=== PATIENT | female | born 1935 | race Caucasian/White ===

== ENCOUNTER 2017-03-29 19:33 | Inpatient (IN) | payer MEDICARE, OTHER ==
[2017-03-29] MEDS ORDERED: SODIUM CHLORIDE 0.9% 1000 ML INFUS.BAG IV PRN (19:54)
--- NOTE | 2017-03-29 19:54 | PDOC ---
History of Present Illness - General History Source: Detention Records <Link Anthony - Last Filed: 03/29/17 21:24> - General History Source: Detention Records Exam Limitations: Dementia - History of Present Illness Initial Comments: 03/29/17 20:28 The patient is a 82 year old female with significant past medical history of dementia, a-fib on eliquis, chf, hypertension, hyperlipidemia, copd/asthma and hypothyroidism who presents to the ED BIBA from [facility] for pneumonia finding on chest x-ray. Patient is poor historian secondary to dementia. As per [place] records, patient had a chest x-ray done earlier today that showed a right lower lobe infiltrate and was sent to the ER. Allergies: Penicillins Social History: No alcohol, tobacco, or drug use reported. Past Surgical History: None reported PCP: Dr. Lizandro Cox <Renetta Galvin - Last Filed: 03/29/17 22:09> - General Stated Complaint: RESPIRATORY Time Seen by Provider: 03/29/17 19:38 Past History - Past Medical History Asthma: Yes Cardiac Disorders: Yes (chronic ischemic heart disease, a-fib) COPD: Yes CHF: Yes Dementia: Yes GI Disorders: Yes (dysphagia) HTN: Yes Hypercholesterolemia: Yes Psychiatric Problems: Yes (anxiety) Thyroid Disease: Yes (hypothyroidism,) - Psycho/Social/Smoking Cessation Hx Anxiety: No Suicidal Ideation: No Smoking History: Unknown if ever smoked Have you smoked in the past 12 months: No Hx Alcohol Use: No Drug/Substance Use Hx: No Substance Use Type: None <Link Anthony - Last Filed: 03/29/17 21:24> <Renetta Galvin - Last Filed: 03/29/17 22:09> - Past Medical History Allergies/Adverse Reactions: Allergies Allergy/AdvReac Type Severity Reaction Status Date / Time Penicillins Allergy Verified 10/08/16 14:29 Home Medications: Ambulatory Orders Albuterol 0.083% Nebulizer Corinne [Ventolin 0.083% Nebulizer Soln -] 1 neb NEB Q4H 02/29/16 Apixaban [Eliquis] 5 mg PO BID 02/29/16 Budesonide [Pulmicort 0.5 mg Nebulizer -] 1 neb NEB BID 02/29/16 Clonazepam 0.5 mg PO Q8H 02/29/16 Furosemide 20 mg PO DAILY 02/29/16 Ipratropium 0.02% Nebulizer [Atrovent 0.02% Nebulizer -] 1 neb NEB ASDIR PRN 03/12 Levothyroxine [Synthroid -] 112 mcg PO DAILY 02/29/16 Losartan Potassium 25 mg PO DAILY 02/29/16 Levofloxacin [Levaquin -] 250 mg PO DAILY #5 tablet 10/10/16 Quetiapine Fumarate [Seroquel -] 12.5 mg PO BID tablet 10/10/16 Review of Systems - Review of Systems Able to Perform ROS?: No Comments:: 03/29/17 20:28 Unable to obtain as patient has dementia <Renetta Galvin - Last Filed: 03/29/17 22:09> *Physical Exam - Vital Signs Last Vital Signs Temp Pulse Resp BP Pulse Ox 101.7 F H 125 H 22 107/45 90 L 03/29/17 19:33 03/29/17 19:33 03/29/17 19:33 03/29/17 19:33 03/29/17 19:33 - Physical Exam Comments: 03/29/17 20:28 GENERAL: Well developed, well nourished. Awake and alert. No acute distress. HEENT: Normocephalic, atraumatic. PERRLA, EOMI. No conjunctival pallor. Sclera are non- icteric. Moist mucous membranes. Oropharynx is clear. NECK: Supple. Full ROM. No JVD. Carotid pulses 2+ and symmetric, without bruits. No thyromegaly. No lymphadenopathy. CARDIOVASCULAR: Regular rate and rhythm. No murmurs, rubs, or gallops. Distal pulses are 2+ and symmetric. PULMONARY: No evidence of respiratory distress. Crackles at right lower base. No retractions. ABDOMINAL: Soft. Non-tender. Non-distended. No rebound or guarding. No organomegaly. Normoactive bowel sounds. MUSCULOSKELETAL Normal range of motion at all joints. No bony deformities or tenderness. No CVA tenderness. EXTREMITIES: No cyanosis. No clubbing. No edema. No calf tenderness. SKIN: Warm and dry. Normal capillary refill. No rashes. No jaundice. NEUROLOGICAL: Pt has dementia. Confused. No gross focal neurological deficits. <Renetta Galvin - Last Filed: 03/29/17 22:09> Heart Score/ECG Review - ECG Impressions Comment:: 03/29/17 21:00 Atrial fibrillation @81bpm Abnormal ECG <Renetta Galvin - Last Filed: 03/29/17 22:09> ED Treatment Course - LABORATORY CBC & Chemistry Diagram: 03/29/17 20:00 03/29/17 20:00 <Link Anthony - Last Filed: 03/29/17 21:24> - LABORATORY CBC & Chemistry Diagram: 03/29/17 20:00 03/29/17 20:00 <Renetta Galvin - Last Filed: 03/29/17 22:09> Medical Decision Making - Medical Decision Making 03/29/17 21:24 Dr. Anthony: The scribe's documentation has been prepared under my direction and personally reviewed by me in its entirery. I confirm that the note above accurately reflects all work, treatment, procedures, and medical decision making performed by me. Patient with right lower lobe pneumonia. Patient will be admitted to [facility] for IV antibiotics. Spoke to Dr. Urbano for orders <Link Anthony - Last Filed: 03/29/17 21:24> - Medical Decision Making 03/29/17 21:[address] Cabrera Urbano (via answering service) at 21:15 Awaiting call back 03/29/17 21:19 Patient's case discussed with Dr. Urbano at 21:19 <Renetta Galvin - Last Filed: 03/29/17 22:09> *DC/Admit/Observation/Transfer - Discharge Dispostion Admit: Yes <Link Anthony - Last Filed: 03/29/17 21:24> - Attestations Scribe Attestion: 03/29/17 20:29 Documentation prepared by Renetta Galvin, acting as medical staffing coordinator for Link Anthony MD/DO <Renetta Galvin - Last Filed: 03/29/17 22:09> Diagnosis at time of Disposition: Sepsis Qualifiers: Sepsis type: sepsis due to unspecified organism Qualified Code(s): A41.9 - Sepsis, unspecified organism Pneumonia Qualifiers: Pneumonia type: due to unspecified organism Laterality: right Lung location: lower lobe of lung Qualified Code(s): J18.1 - Lobar pneumonia, unspecified organism - Referrals Referrals: Lizandro Cox MD [Primary Care Provider] -
[2017-03-29] MEDS ORDERED: ACETAMINOPHEN 1000 MG/100 ML VIAL (NON FORMULARY) IVPB ONE (20:02)
[2017-03-29] MEDS ORDERED: LEVOFLOXACIN 500 MG IVPB 100 ML IVPB ONE ×2 (20:04→20:52)
[2017-03-29] MEDS ORDERED: ACETAMINOPHEN INJECTION 100 ML IVPB ONE (20:34)
[2017-03-29 20:40] LABS: BASOPHIL 0.3 % (0-2.0); EOSINOPHIL 0.4 % (0-4.5); MCH 29.9 pg (25.7-33.7); MCHC 31.5 g/dl (32.0-36.0); MEAN PLT VOLUME 9.3 fl (7.5-11.1); NEUTROPHILS 84.4 % (42.8-82.8); PLATELET COUNT 224 K/MM3 (134-434); WHITE BLOOD COUNT 12.6 K/mm3 (4.0-10.0)
[2017-03-29 20:52] LABS: INR 2.1 (0.82-1.09); PROTHROMBIN TIME (PATIENT) 23.5 SEC (9.98-11.88)
[2017-03-29 20:55] LABS: ACTIVATED PTT 42.5 SECONDS (26.9-34.4)
[2017-03-29 21:14] LABS: ALBUMIN 2.9 g/dl (3.4-5.0); ANION GAP 5 (8-16); BILIRUBIN,TOTAL 0.4 mg/dL (0.2-1.0); CALCIUM 8.2 mg/dL (8.5-10.1); CO2 32 mmol/L (21-32); COCKROFT - GAULT 56.6355; CREATININE 0.9 mg/dL (0.55-1.02); GLUCOSE,RANDOM 128 mg/dL (74-106); SGOT/AST 13 U/L (15-37); SGPT/ALT 18 U/L (12-78); TOT PROT 7.1 g/dl (6.4-8.2)
[2017-03-29 21:17] LABS: ALK PHOS 176 U/L (45-117); TROPONIN I < 0.02 ng/ml (0.00-0.05)
[2017-03-29 21:18] LABS: URINE APPEARANCE SLCLOUDY; URINE BILIRUBIN NEGATIVE (NEGATIVE); URINE COLOR LTYELLOW; URINE GLUCOSE (UA) NEGATIVE (NEGATIVE); URINE KETONE NEGATIVE (NEGATIVE); URINE NITRITE NEGATIVE (NEGATIVE); URINE UROBILINOGEN NEGATIVE E.U./dl (0.2-1.0)
[2017-03-29 21:21] LABS: URINE BLOOD 1+ (NEGATIVE); URINE LEUK ESTERASE 3+ (NEGATIVE); URINE PROTEIN 1+ (NEGATIVE)
[2017-03-29 21:22] LABS: URINE BACTERIA RARE /hpf (NONE SEEN); URINE HYALINE CAST 1 /lpf; URINE MUCUS RARE; URINE RBC 6 /hpf (0-3); URINE WBC 82 /hpf (3-5); YEAST FEW
[2017-03-29 21:38] LABS: VENOUS PH 7.38 (7.32-7.42)
[2017-03-29 21:39] LABS: VENOUS BLOOD GAS HCO3 27.2 meq/L (19-25)
[2017-03-29] MEDS ORDERED: clonazePAM 0.5 MG TABLET ONE (22:20)
[2017-03-29] MEDS: clonazePAM 0.5 MG TABLET PO SCH (22:25)
[2017-03-30] MEDS: ALBUTEROL SO4 0.083% IH SOL 2.5 MG/3 ML VIAL.NEB. NEB SCH ×5 (00:10→23:03)
[2017-03-30] MEDS: IPRATROPIUM BR 0.02% 0.5 MG/2.5 ML VIAL.NEB. NEB SCH ×5 (00:10→23:03)
[2017-03-30 04:25] VITALS: BMI 29.5
[2017-03-30] MEDS: clonazePAM 0.5 MG TABLET PO SCH ×3 (06:21→22:39)
[2017-03-30] MEDS: LEVOTHYROXINE NA 112 MCG TABLET (FP) PO SCH (06:21)
[2017-03-30 07:53] LABS: BASOPHIL 0.3 % (0-2.0); EOSINOPHIL 2.1 % (0-4.5); MCH 31.5 pg (25.7-33.7); MEAN CELL VOLUME 95.6 fl (80-96); MEAN PLT VOLUME 9.3 fl (7.5-11.1); NEUTROPHILS 77.4 % (42.8-82.8); PLATELET COUNT 176 K/MM3 (134-434); RDW 14.9 % (11.6-15.6); WHITE BLOOD COUNT 10.2 K/mm3 (4.0-10.0)
[2017-03-30 08:22] LABS: ALBUMIN 2.5 g/dl (3.4-5.0); ANION GAP 5 (8-16); CALCIUM 7.9 mg/dL (8.5-10.1); CO2 33 mmol/L (21-32); GLUCOSE,RANDOM 79 mg/dL (74-106); MAGNESIUM 2.8 mg/dL (1.8-2.4); SGOT/AST 13 U/L (15-37); SGPT/ALT 14 U/L (12-78)
[2017-03-30 08:28] LABS: ALK PHOS 157 U/L (45-117); BILIRUBIN,TOTAL 0.4 mg/dL (0.2-1.0); CREATININE 0.7 mg/dL (0.55-1.02); TOT PROT 6.2 g/dl (6.4-8.2); TROPONIN I < 0.02 ng/ml (0.00-0.05)
[2017-03-30] MEDS ORDERED: LEVOFLOXACIN 250 MG IVPB 50 ML IVPB SCH (10:00)
[2017-03-30] MEDS ORDERED: FUROSEMIDE 20 MG TABLET (FP) PO SCH (10:00)
[2017-03-30] MEDS: BUDESONIDE 0.5 MG/2 ML INH SUSP VIAL NEB SCH ×2 (10:19→22:02)
[2017-03-30] MEDS: QUEtiapine FUMARATE 25 MG TABLET (FP) PO SCH ×2 (10:22→22:39)
[2017-03-30] MEDS: PANTOPRAZOLE 40 MG TABLET (FP) PO SCH (10:22)
[2017-03-30] MEDS: LOSARTAN POTASSIUM 25 MG TABLET PO SCH (10:23)
[2017-03-30] MEDS: HEPARIN NA (PORCINE) 5,000 UNITS/ML 1ML VIAL SQ SCH ×2 (10:23→22:40)
[2017-03-30] MEDS: APIXABAN 5 MG TABLET PO SCH ×2 (10:23→22:39)
[2017-03-30] MEDS ORDERED: DEXTROSE 5%-0.45% SALINE 1,000 ML IV SCH ×2 (10:45)
--- NOTE | 2017-03-30 10:53 | HP ---
Admitting History and Physical - Admission Chief Complaint: sent for pna History of Present Illness: The patient is a 82 year old female with significant past medical history of dementia, a-fib on eliquis, chf, hypertension, hyperlipidemia, copd/asthma and hypothyroidism who presents to the ED BIBA from [facility] for pneumonia finding on chest x-ray. Patient is poor historian secondary to dementia. As per [place] records, patient had a chest x-ray done earlier today that showed a right lower lobe infiltrate and was sent to the ER. Allergies: Penicillins Social History: No alcohol, tobacco, or drug use reported. Past Surgical History: None reported PCP: Dr. 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 Cardiovascular: Yes: AFIB, HTN, Hyperlipdemia Pulmonary: Yes: COPD ...: No Psych: Yes: Anxiety - Smoking History Smoking history: Unknown if ever smoked Have you smoked in the past 12 months: No Aproximately how many cigarettes per day: 0 - Alcohol/Substance Use Hx Alcohol Use: No Home Medications - Allergies Allergies/Adverse Reactions: Allergies Allergy/AdvReac Type Severity Reaction Status Date / Time Penicillins Allergy Verified 03/29/17 22:09 - Home Medications Home Medications: Ambulatory Orders Albuterol 0.083% Nebulizer Corinne [Ventolin 0.083% Nebulizer Soln -] 1 neb NEB Q4H 02/29/16 Apixaban [Eliquis] 5 mg PO BID 02/29/16 Budesonide [Pulmicort 0.5 mg Nebulizer -] 1 neb NEB BID 02/29/16 Clonazepam 0.5 mg PO Q8H 02/29/16 Furosemide 20 mg PO DAILY 02/29/16 Ipratropium 0.02% Nebulizer [Atrovent 0.02% Nebulizer -] 1 neb NEB ASDIR PRN 03/12 Levothyroxine [Synthroid -] 112 mcg PO DAILY 02/29/16 Losartan Potassium 25 mg PO DAILY 02/29/16 Quetiapine Fumarate [Seroquel -] 12.5 mg PO BID tablet 10/10/16 Acetaminophen [Tylenol -] 650 mg PO BID 03/29/17 Review of Systems Unable to obtain ROS, reason: not able to give history Physical Examination Vital Signs: Vital Signs Temperature 98.2 F 03/30/17 09:00 Pulse Rate 89 03/30/17 10:19 Respiratory Rate 19 03/30/17 09:00 Blood Pressure 145/58 03/30/17 09:00 O2 Sat by Pulse Oximetry (%) 95 03/30/17 10:19 Constitutional: Yes: Thin, Other Cardiovascular: Yes: Regular Rate and Rhythm, S1, S2 Respiratory: Yes: Diminished Gastrointestinal: Yes: Soft Edema: No Neurological: Yes: Confusion (not able to tell me her name) Labs: CBC, BMP 03/30/17 06:00 03/30/17 06:00 Imaging - Results Chest X-ray: Report Reviewed Assessment/Plan confusion sec to infectious process iv abx awaitng cultures wbc trend swallow eval hypernatremia ivf hold lasix renal eval hypothyroid check tsh afib on eliquis cardioology eval copd on bronchodilators GI/DVT ppx
--- NOTE | 2017-03-30 11:50 | CONSULT ---
Addendum entered and electronically signed by Lynnette Asif RES 14:39: PCN allergy, rash and hives many years ago. Original Note: Consultation: REQUESTING PROVIDER: CONSULT REQUEST: We have been asked to medically evaluate this patient for ( specify). HISTORY OF PRESENT ILLNESS: The pt is demented, not following commands, moaning. The history was taken from medical records. 82 year old female with a significant pmhx of chronic ischemic heart disease, CHF, dysphagia, COPD, Asthma, Generalized Anxiety Disorder, Hypertension, Hypothyroidism, HLD, Afib (on Eliquis), dementia who presents brought by ambulance from [facility] she had chest x ray that showed possible pneumonia. She was found to have fever, tachycardia and elevated WBC when arrived to Emergency Room. REVIEW OF SYSTEMS: N/A PHYSICAL EXAMINATION Vital Signs - 24 hr 03/29/17 03/29/17 03/30/17 22:56 23:04 00:15 Temperature 97.9 F 98.1 F Pulse Rate Pulse Rate [ 67 76 Apical] Respiratory 21 20 Rate Blood Pressure Blood Pressure 118/52 111/60 [Right Arm] O2 Sat by Pulse 96 95 Oximetry (%) 03/30/17 03/30/17 03/30/17 02:00 04:21 04:34 Temperature 97.6 F 97.6 F Pulse Rate 58 L 63 Pulse Rate [ Apical] Respiratory 20 20 20 Rate Blood Pressure 118/52 118/52 Blood Pressure [Right Arm] O2 Sat by Pulse 97 Oximetry (%) 03/30/17 03/30/17 03/30/17 05:58 09:00 10:19 Temperature 97.7 F 98.2 F Pulse Rate 64 60 89 Pulse Rate [ Apical] Respiratory 20 19 Rate Blood Pressure 141/75 145/58 Blood Pressure [Right Arm] O2 Sat by Pulse 95 Oximetry (%) GENERAL: Awake and AAO x 0, demented. HEAD: Normal with no signs of trauma. EYES: Pupils equal, round and reactive to light, extraocular movements not able to assess, sclera anicteric, conjunctiva clear. EARS, NOSE, THROAT: Moist mucous membranes, only one tooth. NECK: Supple, no masses. LUNGS: Breath sounds equal, crackles and rhales bilaterally. No wheezes. No accessory muscle use. HEART: Regular rate and rhythm, normal S1 and S2, no murmur rub or gallop. ABDOMEN: Hard, nontender, not distended, normoactive bowel sounds, no guarding, no rebound, no masses. MUSCULOSKELETAL: Normal range of motion at all joints. No bony deformities or tenderness. No CVA tenderness. UPPER EXTREMITIES: warm, well-perfused. No cyanosis. No clubbing. . No peripheral edema. LOWER EXTREMITIES: warm, well-perfused. No calf tenderness. No peripheral edema. NEUROLOGICAL: No facial asymmetry. Gait not observed, not following commands. PSYCHIATRIC: Moaning. SKIN: Warm, dry, normal turgor, no rashes. Laboratory Results - last 24 hr 03/29/17 03/29/17 03/30/17 21:35 22:20 06:00 WBC 10.2 H RBC 3.05 L Hgb 9.6 L Hct 29.1 L MCV 95.6 MCHC 33.0 RDW 14.9 Plt Count 176 D MPV 9.3 Neutrophils % 77.4 Lymphocytes % 10.7 D Monocytes % 9.5 Eosinophils % 2.1 D Basophils % 0.3 VBG pH 7.38 POC VBG pCO2 47.7 POC VBG pO2 71.8 H Mixed VBG HCO3 27.2 H Sodium Potassium Chloride Carbon Dioxide Anion Gap BUN Creatinine Creat Clearance w eGFR Random Glucose Calcium Magnesium Total Bilirubin AST ALT Alkaline Phosphatase Troponin I B-Natriuretic Peptide Total Protein Albumin Blood Type O POSITIVE Antibody Screen Negative 03/30/17 06:00 WBC RBC Hgb Hct MCV MCHC RDW Plt Count MPV Neutrophils % Lymphocytes % Monocytes % Eosinophils % Basophils % VBG pH POC VBG pCO2 POC VBG pO2 Mixed VBG HCO3 Sodium 153 H Potassium 3.5 Chloride 115 H Carbon Dioxide 33 H Anion Gap 5 L BUN 34 H Creatinine 0.7 D Creat Clearance w eGFR > 60 Random Glucose 79 D Calcium 7.9 L Magnesium 2.8 H Total Bilirubin 0.4 AST 13 L ALT 14 D Alkaline Phosphatase 157 H Troponin I < 0.02 B-Natriuretic Peptide 2961.12 H Total Protein 6.2 L Albumin 2.5 L Blood Type Antibody Screen Active Medications Generic Name Dose Route Start Last Admin Trade Name Freq PRN Reason Stop Dose Admin Acetaminophen 650 mg 03/29/17 22:09 Tylenol - PO Q4H PRN FEVER OR PAIN Albuterol Sulfate 1 amp 03/30/17 00:00 03/30/17 11:08 Ventolin 0.083% Nebulizer Soln - NEB 1 amp Q6HPO LARISSA Administration Apixaban 5 mg 03/30/17 10:00 03/30/17 10:23 Eliquis - PO 5 mg BID LARISSA Administration Budesonide 1 amp 03/30/17 10:00 03/30/17 10:19 Pulmicort 0.5 Mg Nebulizer - NEB 1 amp BID LARISSA Administration Clonazepam 0.5 mg 03/29/17 22:15 03/30/17 06:21 Klonopin - PO 0.5 mg TID LARISSA Administration Heparin Sodium (Porcine) 5,000 unit 03/30/17 10:00 03/30/17 10:23 Heparin - SQ 5,000 unit BID LARISSA Administration Levofloxacin 50 mls @ 50 mls/hr 03/30/17 10:00 03/30/17 10:23 Levaquin 250 Mg Premixed Ivpb - IVPB 50 mls/hr DAILY LARISSA Administration Dextrose/Sodium Chloride 1,000 mls @ 42 mls/hr 03/30/17 10:45 03/30/17 11:37 D5-1/2ns - IV 42 mls/hr ASDIR LARISSA Administration Ipratropium [place] 1 amp 03/30/17 12:00 03/30/17 11:08 Atrovent 0.02% Nebulizer - NEB 1 amp QIDR LARISSA Administration Levothyroxine Sodium 112 mcg 03/30/17 07:00 03/30/17 06:21 Synthroid - PO 112 mcg DAILY@0700 LARISSA Administration Losartan Potassium 25 mg 03/30/17 10:00 03/30/17 10:23 Cozaar - PO 25 mg DAILY LARISSA Administration Pantoprazole Sodium 40 mg 03/30/17 10:00 03/30/17 10:22 Protonix - PO 40 mg DAILY LARISSA Administration Quetiapine Fumarate 12.5 mg 03/30/17 10:00 03/30/17 10:22 Seroquel - PO 12.5 mg BID LARISSA Administration Sodium Chloride 1,000 ml 03/29/17 19:54 03/29/17 20:47 Normal Saline - IV 1,000 ml Q20M PRN Administration MAP<65mm Hg OR SBP <90 CXR: possible infiltrate on right side ASSESSMENT/PLAN: 82 year old female with a significant pmhx of chronic ischemic heart disease, CHF, dysphagia, COPD, Asthma, Generalized Anxiety Disorder, Hypertension, Hypothyroidism, HLD, Afib (on Eliquis), dementia who presents brought by ambulance from [facility] she had chest x ray that showed possible pneumonia. She was found to have fever, tachycardia and elevated WBC. Sepsis due to due to pneumonia, UTI -will switch Levaquin to Ceftriaxone 2 g qd -Influenza A&B -sputum culture -urine antigens for PNA A.Fib Dementia Parkinson's HTN HDL [id number] Dispo: We will continue to follow the patient. Thank you for this consultative opportunity. Problem List - Problems (1) Pneumonia Code(s): J18.9 - PNEUMONIA, UNSPECIFIED ORGANISM Qualifiers: Pneumonia type: due to unspecified organism Laterality: right Lung location: lower lobe of lung Qualified Code(s): J18.1 - Lobar pneumonia, unspecified organism (2) A-fib Code(s): I48.91 - UNSPECIFIED ATRIAL FIBRILLATION Qualifiers: Atrial fibrillation type: chronic Qualified Code(s): I48.2 - Chronic atrial fibrillation (3) Dementia Code(s): F03.90 - UNSPECIFIED DEMENTIA WITHOUT BEHAVIORAL DISTURBANCE (4) HTN (hypertension) Code(s): I10 - ESSENTIAL (PRIMARY) HYPERTENSION Visit type - Emergency Visit Emergency Visit: Yes ED Registration Date: 03/29/17 Care time: The patient presented to the Emergency Department on the above date and was hospitalized for further evaluation of their emergent condition. - New Patient This patient is new to me today: Yes Date on this admission: 03/30/17 - Critical Care Critical Care patient: No
--- NOTE | 2017-03-30 13:49 | CONSULT ---
Admitting History and Physical - Primary Care Physician PCP: Jennifer Hwang - Admission History of Present Illness: per emr: "82 year old female with a significant pmhx of chronic ischemic heart disease, CHF, dysphagia, COPD, Asthma, Generalized Anxiety Disorder, Hypertension, Hypothyroidism, HLD, Afib (on Eliquis), dementia who presents brought by ambulance from [facility] she had chest x ray that showed possible pneumonia. She was found to have fever, tachycardia and elevated WBC when arrived to Emergency Room." RLL PNA/UTI. 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 Cardiovascular: Yes: AFIB, HTN, Hyperlipdemia Pulmonary: Yes: COPD ...: No Psych: Yes: Anxiety - Smoking History Smoking history: Unknown if ever smoked Have you smoked in the past 12 months: No Aproximately how many cigarettes per day: 0 - Alcohol/Substance Use Hx Alcohol Use: No History - Admission Reason For Visit: SEPSIS - Diagnostics X-ray: Report Reviewed - General Mental Status: Awake and Alert, Confused Attention: Distractible Ability to Follow Directions: Poor Head/Neck Control: Needs Assist - Hearing Hearing: Impaired Hearing Aide: No With Patient: No Speech Evaluation - Communication Primary Language: BELIZEAN Communication: Yes: Non-Communicable (Constant vocalizations.) Oral Expression Ability: Yes: Severe Impairment, Non-Verbal - Speech Production Able to Make Needs Known: Yes: Severely Impaired Intelligibility: Yes: Severely Impaired - Speech Characteristics Voice Loudness: Normal Voice Pitch: Yes: Normal Voice Phonatory-based Quality: Yes: Normal Speech Pattern: Impaired Speech Clarity: < 25% Nasal Resonance: Normal - Language/Auditory Comprehension Observation: Able to respond to yes/no queries: No, Comprehends Conversational Speech: No - Language/Verbal Expression Able to Respond to Simple Queries: Yes: Severely Impaired Able to Communicate Wants and Needs: Yes: Severely Impaired Functional Communication Status: Yes: Severely Impaired Attention: Yes: Distractible, Moderate Impairment - 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 Memory: Yes: Severely Impaired Short Term Memory: Yes: Severely Impaired - Swallow Evaluation/Bedside Assessment Current Nutritional Intake: Dysphagia Minced, Thin Liquids Facial Symmetry at Rest: Symmetrical Laryngeal Elevation: Impaired Laryngeal Movement: Labored,delay initiation Rate of Intake: Slow/Holding Labial Seal: Impaired Bilaterally Chewing: Impaired Oral Prep Time: Increased A-P Transit: Impaired Pocketing: Present Bilaterally Timing of Swallow: Delayed Coughing/Throat Clear: No Change in Voice: No Recommendations - Speech Evaluation, Impression/Plan Impression: r/o silent aspiration. RLL pna.Very delayed swallow. Oral/ pharyngeal dyscoordination. Constant vocalizations, leaving airway open while eating/drinking. - Dysphagia Impressions/Plan Swallowing Skills: Impaired Dysphagia Impressions: Moderate Impairment, Ongoing Evaluation *Silent aspiration: cannot be R/O at bedside Recommendations: MBS w Esophagus - Recommendations Diet Consistency: Dysphagia Pureed Medication Administration: Crushed with applesauce Liquids: [place] Thick Supplement: Other (Ensure compact)
--- NOTE | 2017-03-30 14:01 | CON.CARD ---
Consult Consult Specialty:: Cardiology Referred by:: Dr Urbano Reason for Consultation:: atrial fibrillation - History of Present Illness Chief Complaint: admitted for pneumonia on xray History of Present Illness: 82 year old female with significant past medical history of dementia, chronic atrial fibrillation on eliquis, CVA, chf, hypertension, hyperlipidemia, copd/ asthma and hypothyroidism who was admitted from [facility] for pneumonia finding on chest x-ray. She is unable to give a history and appears comfortable lying flat. 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 Cardio/Vascular: Yes: AFIB, HTN, Hyperlipdemia Pulmonary: Yes: COPD ...: No Psych: Yes: Anxiety - Alcohol/Substance Use Hx Alcohol Use: No - Smoking History Smoking history: Unknown if ever smoked Have you smoked in the past 12 months: No Aproximately how many cigarettes per day: 0 - Social History Usual Living Arrangement: Shelter Home Medications - Allergies Allergies/Adverse Reactions: Allergies Allergy/AdvReac Type Severity Reaction Status Date / Time Penicillins Allergy Verified 03/29/17 22:09 - Home Medications Home Medications: Ambulatory Orders Albuterol 0.083% Nebulizer Corinne [Ventolin 0.083% Nebulizer Soln -] 1 neb NEB Q4H 02/29/16 Apixaban [Eliquis] 5 mg PO BID 02/29/16 Budesonide [Pulmicort 0.5 mg Nebulizer -] 1 neb NEB BID 02/29/16 Clonazepam 0.5 mg PO Q8H 02/29/16 Furosemide 20 mg PO DAILY 02/29/16 Ipratropium 0.02% Nebulizer [Atrovent 0.02% Nebulizer -] 1 neb NEB ASDIR PRN 03/12 Levothyroxine [Synthroid -] 112 mcg PO DAILY 02/29/16 Losartan Potassium 25 mg PO DAILY 02/29/16 Quetiapine Fumarate [Seroquel -] 12.5 mg PO BID tablet 10/10/16 Acetaminophen [Tylenol -] 650 mg PO BID 03/29/17 Family Disease History - Family Disease History Family History: Unable to Obtain Review of Systems Unable to obtain ROS, reason: due to dementia Vital Signs: Vital Signs Temperature 98.2 F 03/30/17 09:00 Pulse Rate 89 03/30/17 10:19 Respiratory Rate 19 03/30/17 09:00 Blood Pressure 145/58 03/30/17 09:00 O2 Sat by Pulse Oximetry (%) 95 03/30/17 10:19 Constitutional: Yes: No Distress, Calm Eyes: Yes: Conjunctiva Clear HENT: Yes: Atraumatic, Normocephalic Neck: Yes: Supple, Trachea Midline Respiratory: Yes: Rhonchi (rt > lt) Gastrointestinal: Yes: Normal Bowel Sounds, Soft Cardiovascular: Yes: Pulse Irregular JVD: No Carotid Bruit: No PMI: Non-Displaced Heart Sounds: Yes: S1, S2 Murmur: Yes: Systolic Murmur, Grade 2 (mehdi rusb.) Edema: No Peripheral Pulses WNL: Yes - Other Data Labs, Other Data: CBC, BMP 03/30/17 06:00 03/30/17 06:00 INR, PTT INR 2.10 (0.82-1.09) H D 03/29/17 20:00 Troponin, BNP 03/30/17 06:00 Troponin I < 0.02 B-Natriuretic Peptide 2961.12 H Troponin, BNP 03/30/17 06:00 Troponin I < 0.02 B-Natriuretic Peptide 2961.12 H Imaging - Results Chest X-ray: Report Reviewed EKG: Pending Problem List - Problems (1) A-fib Assessment/Plan: Continue Eliquis for stroke prevention. She is rate controlled at present without medications. No need for further cardiac testing given her disability at this point. She is not a candidate for further therapy. cardiac status is stable. Will follow as needed. Code(s): I48.91 - UNSPECIFIED ATRIAL FIBRILLATION Qualifiers: Atrial fibrillation type: chronic Qualified Code(s): I48.2 - Chronic atrial fibrillation
--- NOTE | 2017-03-30 14:28 | PN ---
Teaching Attending Note Name of Resident: Lynnette Asif ATTENDING PHYSICIAN STATEMENT I saw and evaluated the patient. I reviewed the resident's note and discussed the case with the resident. I agree with the resident's findings and plan as documented. SUBJECTIVE: OBJECTIVE: ASSESSMENT AND PLAN: Probable NH acquired RLL pneumonia Possible sepsis secondary to pneumonia UTI PCN allergy ( rash many years ago; no hx anaphylaxis ) Pending cultures, empiric ceftriaxone Discussed with son at bedside
[2017-03-30] MEDS: CEFTRIAXONE 100 ML IVPB SCH (15:20)
[2017-03-30 16:05] LABS: CALCIUM 8.3 mg/dL (8.5-10.1); COCKROFT - GAULT 64.5405; CREATININE 0.8 mg/dL (0.55-1.02)
--- NOTE | 2017-03-30 17:27 | EKG ---
Test Reason : Blood Pressure : / mmHG Vent. Rate : 081 BPM Atrial Rate : 084 BPM P-R Int : 000 ms QRS Dur : 080 ms QT Int : 386 ms P-R-T Axes : 000 025 065 degrees QTc Int : 448 ms ATRIAL FIBRILLATION ABNORMAL ECG WHEN COMPARED WITH ECG OF 08-OCT-2016 17:17, NO SIGNIFICANT CHANGE WAS FOUND Confirmed by MIGUEL ANGEL ROCHA MD ([id number]) on 03/30/2017 5:27:07 PM Referred By: Confirmed By:MIGUEL ANGEL ROCHA MD
--- NOTE | 2017-03-30 20:29 | CONSULT ---
Consult Consult Specialty:: Nephrology Reason for Consultation:: hypernatremia - History of Present Illness Chief Complaint: sent in from [place] for UTI History of Present Illness: Pt is an 82 year old female with history of dementia, a-fib, HTN, CHF, hyperlipidemia, asthma, COPD and hypothyroidism who was brought in to the hospital for PNA. Pt has dementia and is unable to give history. Her son is at bedside and helped with history. She has not bee herself and has decreased PO intake. There was a possible infultrate on cxr and she was admitted for abx and treatment. I was called to evaluate her for hypernatremia. - History Source History Provided By: Family Member, Medical Record - Past Medical History COKE DRAWER: Yes: Alzheimer's, Dementia Cardio/Vascular: Yes: AFIB, HTN, Hyperlipdemia Pulmonary: Yes: COPD ...: No Psych: Yes: Anxiety - Alcohol/Substance Use Hx Alcohol Use: No - Smoking History Smoking history: Unknown if ever smoked Have you smoked in the past 12 months: No Aproximately how many cigarettes per day: 0 - Social History Usual Living Arrangement: Longterm Home Medications - Allergies Allergies/Adverse Reactions: Allergies Allergy/AdvReac Type Severity Reaction Status Date / Time Penicillins Allergy Verified 03/29/17 22:09 - Home Medications Home Medications: Ambulatory Orders Albuterol 0.083% Nebulizer [place]inne [Ventolin 0.083% Nebulizer Soln -] 1 neb NEB Q4H 02/29/16 Apixaban [Eliquis] 5 mg PO BID 02/29/16 Budesonide [Pulmicort 0.5 mg Nebulizer -] 1 neb NEB BID 02/29/16 Clonazepam 0.5 mg PO Q8H 02/29/16 Furosemide 20 mg PO DAILY 02/29/16 Ipratropium 0.02% Nebulizer [Atrovent 0.02% Nebulizer -] 1 neb NEB ASDIR PRN 03/12 Levothyroxine [Synthroid -] 112 mcg PO DAILY 02/29/16 Losartan Potassium 25 mg PO DAILY 02/29/16 Quetiapine Fumarate [Seroquel -] 12.5 mg PO BID tablet 10/10/16 Acetaminophen [Tylenol -] 650 mg PO BID 03/29/17 Family Disease History - Family Disease History Family History: Denies Review of Systems Unable to obtain ROS, reason: dementia Physical Exam Vital Signs: Vital Signs Temperature 97.1 F L 03/30/17 18:00 Pulse Rate 79 03/30/17 18:00 Respiratory Rate 20 03/30/17 18:00 Blood Pressure 93/46 03/30/17 18:00 O2 Sat by Pulse Oximetry (%) 95 03/30/17 10:19 Eyes: Yes: Conjunctiva Clear Cardiovascular: Yes: S1, S2 Respiratory: Yes: On Nasal O2, Rhonchi Gastrointestinal: Yes: Soft Renal/: Yes: Incontinence Musculoskeletal: Yes: Muscle Weakness Edema: LLE: Trace, RLE: Trace Neurological: Yes: Confusion Psychiatric: Yes: Agitated Labs: CBC, BMP 03/30/17 06:00 03/30/17 14:30 Laboratory Tests 03/29/17 03/29/17 03/29/17 20:00 20:00 21:00 WBC 12.6 H D Hgb 10.2 L D Sodium 150 H BUN 38 H D Creatinine 0.9 D B-Natriuretic Peptide Urine Protein 1+ H Urine Blood 1+ H Ur Leukocyte Esterase 3+ H Urine RBC 6 Urine WBC 82 03/30/17 03/30/17 03/30/17 06:00 06:00 14:30 WBC 10.2 H Hgb 9.6 L Sodium 153 H 149 H BUN 34 H 33 H Creatinine 0.7 D 0.8 B-Natriuretic Peptide 2961.12 H Urine Protein Urine Blood Ur Leukocyte Esterase Urine RBC Urine WBC Imaging - Results Chest X-ray: Report Reviewed Problem List - Problems (1) Pneumonia Code(s): J18.9 - PNEUMONIA, UNSPECIFIED ORGANISM Qualifiers: Pneumonia type: due to unspecified organism Laterality: right Lung location: lower lobe of lung Qualified Code(s): J18.1 - Lobar pneumonia, unspecified organism (2) A-fib Code(s): I48.91 - UNSPECIFIED ATRIAL FIBRILLATION Qualifiers: Atrial fibrillation type: chronic Qualified Code(s): I48.2 - Chronic atrial fibrillation (3) Dementia Code(s): F03.90 - UNSPECIFIED DEMENTIA WITHOUT BEHAVIORAL DISTURBANCE (4) HTN (hypertension) Code(s): I10 - ESSENTIAL (PRIMARY) HYPERTENSION (5) Hypernatremia Code(s): E87.0 - HYPEROSMOLALITY AND HYPERNATREMIA Assessment/Plan Current Medications Generic Name Dose Route Start Last Admin Trade Name Freq PRN Reason Stop Dose Admin Acetaminophen 650 mg 03/29/17 22:09 Tylenol - PO Q4H PRN FEVER OR PAIN Albuterol Sulfate 1 amp 03/30/17 00:00 03/30/17 17:16 Ventolin 0.083% Nebulizer Soln - NEB 1 amp Q6HPO LARISSA Administration Apixaban 5 mg 03/30/17 10:00 03/30/17 10:23 Eliquis - PO 5 mg BID LARISSA Administration Budesonide 1 amp 03/30/17 10:00 03/30/17 10:19 Pulmicort 0.5 Mg Nebulizer - NEB 1 amp BID LARISSA Administration Clonazepam 0.5 mg 03/29/17 22:15 03/30/17 15:20 Klonopin - PO 0.5 mg TID LARISSA Administration Heparin Sodium (Porcine) 5,000 unit 03/30/17 10:00 03/30/17 10:23 Heparin - SQ 5,000 unit BID LARISSA Administration Dextrose/Sodium Chloride 1,000 mls @ 42 mls/hr 03/30/17 10:45 03/30/17 11:37 D5-1/2ns - IV 42 mls/hr ASDIR LARISSA Administration Ceftriaxone Sodium 100 mls @ 200 mls/hr 03/30/17 14:45 03/30/17 15:20 Rocephin 2gm Ivpb (Pre-Docked) IVPB 200 mls/hr DAILY LARISSA Administration Ipratropium [place] 1 amp 03/30/17 12:00 03/30/17 17:16 Atrovent 0.02% Nebulizer - NEB 1 amp QIDR LARISSA Administration Levothyroxine Sodium 112 mcg 03/30/17 07:00 03/30/17 06:21 Synthroid - PO 112 mcg DAILY@0700 LARISSA Administration Losartan Potassium 25 mg 03/30/17 10:00 03/30/17 10:23 Cozaar - PO 25 mg DAILY LARISSA Administration Pantoprazole Sodium 40 mg 03/30/17 10:00 03/30/17 10:22 Protonix - PO 40 mg DAILY LARISSA Administration Quetiapine Fumarate 12.5 mg 03/30/17 10:00 03/30/17 10:22 Seroquel - PO 12.5 mg BID LARISSA Administration Sodium Chloride 1,000 ml 03/29/17 19:54 03/29/17 20:47 Normal Saline - IV 1,000 ml Q20M PRN Administration MAP<65mm Hg OR SBP <90 Impression 1. hypernatremia 2. a-fib 3. PNA 4. UTI 5. CHF 6. HTN 7. dementia 8. COPD Plan - follow up cultures - recommend changing fluids from 1/2 ns to d5w - repeat labs in am - pt is likely dehydrated as she has been eating less - pt was on lasix in [place], will asses daily - urine and blood cultures pending - ID input appreciated - will follow Dr Doss
[2017-03-30] MEDS ORDERED: DEXTROSE 5%-WATER - 1,000 ML IV SCH (20:45)
[2017-03-30] MEDS ORDERED: PT OWN MED DRAWER 7, Y5N ONE (22:33)
[2017-03-31] MEDS: clonazePAM 0.5 MG TABLET PO SCH ×3 (06:24→22:10)
[2017-03-31] MEDS: LEVOTHYROXINE NA 112 MCG TABLET (FP) PO SCH (06:24)
[2017-03-31] MEDS: ALBUTEROL SO4 0.083% IH SOL 2.5 MG/3 ML VIAL.NEB. NEB SCH ×4 (06:30→23:28)
[2017-03-31] MEDS: IPRATROPIUM BR 0.02% 0.5 MG/2.5 ML VIAL.NEB. NEB SCH ×4 (06:30→23:28)
[2017-03-31 07:55] LABS: BASOPHIL 0.7 % (0-2.0); EOSINOPHIL 3.4 % (0-4.5); MCHC 32.7 g/dl (32.0-36.0); MEAN CELL VOLUME 94.8 fl (80-96); NEUTROPHILS 75.3 % (42.8-82.8); PLATELET COUNT 184 K/MM3 (134-434); RDW 14.9 % (11.6-15.6); WHITE BLOOD COUNT 8.4 K/mm3 (4.0-10.0)
[2017-03-31 08:47] LABS: ALBUMIN 2.4 g/dl (3.4-5.0); ANION GAP 7 (8-16); CALCIUM 8.1 mg/dL (8.5-10.1); CO2 31 mmol/L (21-32); GLUCOSE,RANDOM 82 mg/dL (74-106)
[2017-03-31 09:00] LABS: ALK PHOS 161 U/L (45-117); BILIRUBIN,TOTAL 0.3 mg/dL (0.2-1.0); COCKROFT - GAULT 74.1965; CREATININE 0.7 mg/dL (0.55-1.02); SGOT/AST 13 U/L (15-37); SGPT/ALT 14 U/L (12-78); THYROID STIMULATING HORMONE 0.35 uIU/ml (0.358-3.74); TOT PROT 6.3 g/dl (6.4-8.2)
[2017-03-31] MEDS: CEFTRIAXONE 100 ML IVPB SCH (09:09)
[2017-03-31] MEDS: LOSARTAN POTASSIUM 25 MG TABLET PO SCH (09:11)
[2017-03-31] MEDS: QUEtiapine FUMARATE 25 MG TABLET (FP) PO SCH ×2 (09:11→22:09)
[2017-03-31] MEDS: PANTOPRAZOLE 40 MG TABLET (FP) PO SCH (09:12)
[2017-03-31] MEDS ORDERED: PT OWN MED DRAWER 7, Y5N ONE ×2 (09:15→22:01)
[2017-03-31] MEDS: APIXABAN 5 MG TABLET PO SCH ×2 (09:17→22:09)
[2017-03-31] MEDS: HEPARIN NA (PORCINE) 5,000 UNITS/ML 1ML VIAL SQ SCH ×2 (09:19→22:09)
[2017-03-31] MEDS: BUDESONIDE 0.5 MG/2 ML INH SUSP VIAL NEB SCH ×2 (09:50→22:09)
--- NOTE | 2017-03-31 10:43 | PN ---
Progress Note, Physician Chief Complaint: patient in bed moaning more awake today - Current Medication List Current Medications: Active Medications Acetaminophen (Tylenol -) 650 mg PO Q4H PRN PRN Reason: FEVER OR PAIN Albuterol Sulfate (Ventolin 0.083% Nebulizer Soln -) 1 amp NEB Q6HPO [facility] Last Admin: 03/31/17 06:30 Dose: 1 amp Apixaban (Eliquis -) 5 mg PO BID [facility] Last Admin: 03/31/17 09:17 Dose: 5 mg Budesonide (Pulmicort 0.5 Mg Nebulizer -) 1 amp NEB BID [facility] Last Admin: 03/30/17 22:02 Dose: 1 amp Clonazepam (Klonopin -) 0.5 mg PO TID [facility] Last Admin: 03/31/17 06:24 Dose: 0.5 mg Heparin Sodium (Porcine) (Heparin -) 5,000 unit SQ BID [facility] Last Admin: 03/31/17 09:19 Dose: 5,000 unit Ceftriaxone Sodium (Rocephin 2gm Ivpb (Pre-Docked)) 100 mls @ 200 mls/hr IVPB DAILY [facility] Last Admin: 03/31/17 09:09 Dose: 200 mls/hr Dextrose (D5w -) 1,000 mls @ 40 mls/hr IV ASDIR [facility] Last Admin: 03/30/17 22:41 Dose: 40 mls/hr Ipratropium [place] (Atrovent 0.02% Nebulizer -) 1 amp NEB QIDR [facility] Last Admin: 03/31/17 06:30 Dose: 1 amp Levothyroxine Sodium (Synthroid -) 112 mcg PO DAILY@0700 [facility] Last Admin: 03/31/17 06:24 Dose: 112 mcg Losartan Potassium (Cozaar -) 25 mg PO DAILY [facility] Last Admin: 03/31/17 09:11 Dose: 25 mg Pantoprazole Sodium (Protonix -) 40 mg PO DAILY [facility] Last Admin: 03/31/17 09:12 Dose: 40 mg Quetiapine Fumarate (Seroquel -) 12.5 mg PO BID [facility] Last Admin: 03/31/17 09:11 Dose: 12.5 mg Sodium Chloride (Normal Saline -) 1,000 ml IV Q20M PRN PRN Reason: MAP<65mm Hg OR SBP <90 Last Admin: 03/29/17 20:47 Dose: 1,000 ml - Objective Vital Signs: Vital Signs Temperature 98.2 F 03/31/17 06:00 Pulse Rate 69 03/31/17 06:00 Respiratory Rate 20 03/31/17 06:00 Blood Pressure 135/77 03/31/17 06:00 O2 Sat by Pulse Oximetry (%) 95 03/30/17 21:00 Constitutional: Yes: Calm Cardiovascular: Yes: S1, S2 Respiratory: Yes: Diminished Gastrointestinal: Yes: Soft Labs: CBC, BMP 03/31/17 06:00 03/31/17 06:00 INR, PTT INR 2.10 (0.82-1.09) H D 03/29/17 20:00 Problem List - Problems (1) Hypernatremia Assessment/Plan: renal on board on d5w Code(s): E87.0 - HYPEROSMOLALITY AND HYPERNATREMIA (2) Pneumonia Assessment/Plan: iv roceophin MBS Code(s): J18.9 - PNEUMONIA, UNSPECIFIED ORGANISM Qualifiers: Pneumonia type: due to unspecified organism Laterality: right Lung location: lower lobe of lung Qualified Code(s): J18.1 - Lobar pneumonia, unspecified organism (3) A-fib Assessment/Plan: on eliquis Code(s): I48.91 - UNSPECIFIED ATRIAL FIBRILLATION Qualifiers: Atrial fibrillation type: chronic Qualified Code(s): I48.2 - Chronic atrial fibrillation (4) Dementia Assessment/Plan: psych Code(s): F03.90 - UNSPECIFIED DEMENTIA WITHOUT BEHAVIORAL DISTURBANCE
--- NOTE | 2017-03-31 11:58 | PN ---
Progress Note, Physician History of Present Illness: More awake and alert but confused Afebrile Tolerating cephalosporin WBC improved- WNL Flu swab (-) BC (-) Urine c/s NLF - Current Medication List Current Medications: Active Medications Acetaminophen (Tylenol -) 650 mg PO Q4H PRN PRN Reason: FEVER OR PAIN Albuterol Sulfate (Ventolin 0.083% Nebulizer Soln -) 1 amp NEB Q6HPO [facility] Last Admin: 03/31/17 11:17 Dose: 1 amp Apixaban (Eliquis -) 5 mg PO BID [facility] Last Admin: 03/31/17 09:17 Dose: 5 mg Budesonide (Pulmicort 0.5 Mg Nebulizer -) 1 amp NEB BID [facility] Last Admin: 03/31/17 09:50 Dose: 1 amp Clonazepam (Klonopin -) 0.5 mg PO TID [facility] Last Admin: 03/31/17 06:24 Dose: 0.5 mg Heparin Sodium (Porcine) (Heparin -) 5,000 unit SQ BID [facility] Last Admin: 03/31/17 09:19 Dose: 5,000 unit Ceftriaxone Sodium (Rocephin 2gm Ivpb (Pre-Docked)) 100 mls @ 200 mls/hr IVPB DAILY [facility] Last Admin: 03/31/17 09:09 Dose: 200 mls/hr Dextrose (D5w -) 1,000 mls @ 40 mls/hr IV ASDIR [facility] Last Admin: 03/30/17 22:41 Dose: 40 mls/hr Ipratropium [place] (Atrovent 0.02% Nebulizer -) 1 amp NEB QIDR [facility] Last Admin: 03/31/17 11:18 Dose: 1 amp Levothyroxine Sodium (Synthroid -) 112 mcg PO DAILY@0700 [facility] Last Admin: 03/31/17 06:24 Dose: 112 mcg Losartan Potassium (Cozaar -) 25 mg PO DAILY [facility] Last Admin: 03/31/17 09:11 Dose: 25 mg Pantoprazole Sodium (Protonix -) 40 mg PO DAILY [facility] Last Admin: 03/31/17 09:12 Dose: 40 mg Quetiapine Fumarate (Seroquel -) 12.5 mg PO BID [facility] Last Admin: 03/31/17 09:11 Dose: 12.5 mg Sodium Chloride (Normal Saline -) 1,000 ml IV Q20M PRN PRN Reason: MAP<65mm Hg OR SBP <90 Last Admin: 03/29/17 20:47 Dose: 1,000 ml - Objective Vital Signs: Vital Signs Temperature 98.2 F 03/31/17 06:00 Pulse Rate 64 03/31/17 11:17 Respiratory Rate 20 03/31/17 06:00 Blood Pressure 135/77 03/31/17 06:00 O2 Sat by Pulse Oximetry (%) 93 L 03/31/17 11:17 Constitutional: Yes: No Distress Eyes: Yes: Conjunctiva Clear Cardiovascular: Yes: Regular Rate and Rhythm, S1, S2 Respiratory: Yes: CTA Bilaterally Gastrointestinal: Yes: Normal Bowel Sounds, Soft. No: Tenderness Edema: No Labs: CBC, BMP 03/31/17 06:00 03/31/17 06:00 INR, PTT INR 2.10 (0.82-1.09) H D 03/29/17 20:00 Assessment/Plan UTI/ Sepsis secondary to UTI Toxic metabolic encephalopathy- improved Leukocytosis- resolved PCN allergy Continue ceftriaxone Await c/s result
[2017-03-31] MEDS ORDERED: DEXTROSE 5%-WATER - 1,000 ML IV SCH (19:03)
--- NOTE | 2017-03-31 19:03 | PN ---
Progress Note, Physician History of Present Illness: Pt seen and examined at bedside. She is awake but confused. No great change from yesterday. - Current Medication List Current Medications: Active Medications Acetaminophen (Tylenol -) 650 mg PO Q4H PRN PRN Reason: FEVER OR PAIN Albuterol Sulfate (Ventolin 0.083% Nebulizer Soln -) 1 amp NEB Q6HPO [facility] Last Admin: 03/31/17 17:41 Dose: 1 amp Apixaban (Eliquis -) 5 mg PO BID [facility] Last Admin: 03/31/17 09:17 Dose: 5 mg Budesonide (Pulmicort 0.5 Mg Nebulizer -) 1 amp NEB BID [facility] Last Admin: 03/31/17 09:50 Dose: 1 amp Clonazepam (Klonopin -) 0.5 mg PO TID [facility] Last Admin: 03/31/17 15:30 Dose: 0.5 mg Heparin Sodium (Porcine) (Heparin -) 5,000 unit SQ BID [facility] Last Admin: 03/31/17 09:19 Dose: 5,000 unit Ceftriaxone Sodium (Rocephin 2gm Ivpb (Pre-Docked)) 100 mls @ 200 mls/hr IVPB DAILY [facility] Last Admin: 03/31/17 09:09 Dose: 200 mls/hr Dextrose (D5w -) 1,000 mls @ 40 mls/hr IV ASDIR [facility] Last Admin: 03/30/17 22:41 Dose: 40 mls/hr Ipratropium [place] (Atrovent 0.02% Nebulizer -) 1 amp NEB QIDR [facility] Last Admin: 03/31/17 17:42 Dose: 1 amp Levothyroxine Sodium (Synthroid -) 112 mcg PO DAILY@0700 [facility] Last Admin: 03/31/17 06:24 Dose: 112 mcg Losartan Potassium (Cozaar -) 25 mg PO DAILY [facility] Last Admin: 03/31/17 09:11 Dose: 25 mg Pantoprazole Sodium (Protonix -) 40 mg PO DAILY [facility] Last Admin: 03/31/17 09:12 Dose: 40 mg Quetiapine Fumarate (Seroquel -) 12.5 mg PO BID [facility] Last Admin: 03/31/17 09:11 Dose: 12.5 mg Sodium Chloride (Normal Saline -) 1,000 ml IV Q20M PRN PRN Reason: MAP<65mm Hg OR SBP <90 Last Admin: 03/29/17 20:47 Dose: 1,000 ml - Objective Vital Signs: Vital Signs Temperature 98.7 F 03/31/17 15:28 Pulse Rate 77 03/31/17 15:28 Respiratory Rate 20 03/31/17 15:28 Blood Pressure 114/51 03/31/17 15:28 O2 Sat by Pulse Oximetry (%) 93 L 03/31/17 11:17 Constitutional: Yes: Calm Eyes: Yes: Conjunctiva Clear Cardiovascular: Yes: S1, S2 Respiratory: Yes: On Nasal O2 Gastrointestinal: Yes: Soft Genitourinary: Yes: Incontinence Musculoskeletal: Yes: Muscle Weakness Edema: Yes Edema: LLE: Trace, RLE: Trace Neurological: Yes: Confusion Labs: CBC, BMP 03/31/17 06:00 03/31/17 06:00 INR, PTT INR 2.10 (0.82-1.09) H D 03/29/17 20:00 Problem List - Problems (1) Pneumonia Code(s): J18.9 - PNEUMONIA, UNSPECIFIED ORGANISM Qualifiers: Pneumonia type: due to unspecified organism Laterality: right Lung location: lower lobe of lung Qualified Code(s): J18.1 - Lobar pneumonia, unspecified organism (2) A-fib Code(s): I48.91 - UNSPECIFIED ATRIAL FIBRILLATION Qualifiers: Atrial fibrillation type: chronic Qualified Code(s): I48.2 - Chronic atrial fibrillation (3) Dementia Code(s): F03.90 - UNSPECIFIED DEMENTIA WITHOUT BEHAVIORAL DISTURBANCE (4) HTN (hypertension) Code(s): I10 - ESSENTIAL (PRIMARY) HYPERTENSION (5) Hypernatremia Code(s): E87.0 - HYPEROSMOLALITY AND HYPERNATREMIA Assessment/Plan Current Medications Generic Name Dose Route Start Last Admin Trade Name Freq PRN Reason Stop Dose Admin Acetaminophen 650 mg 03/29/17 22:09 Tylenol - PO Q4H PRN FEVER OR PAIN Albuterol Sulfate 1 amp 03/30/17 00:00 03/31/17 17:41 Ventolin 0.083% Nebulizer Soln - NEB 1 amp Q6HPO LARISSA Administration Apixaban 5 mg 03/30/17 10:00 03/31/17 09:17 Eliquis - PO 5 mg BID LARISSA Administration Budesonide 1 amp 03/30/17 10:00 03/31/17 09:50 Pulmicort 0.5 Mg Nebulizer - NEB 1 amp BID LARISSA Administration Clonazepam 0.5 mg 03/29/17 22:15 03/31/17 15:30 Klonopin - PO 0.5 mg TID LARISSA Administration Heparin Sodium (Porcine) 5,000 unit 03/30/17 10:00 03/31/17 09:19 Heparin - SQ 5,000 unit BID LARISSA Administration Ceftriaxone Sodium 100 mls @ 200 mls/hr 03/30/17 14:45 03/31/17 09:09 Rocephin 2gm Ivpb (Pre-Docked) IVPB 200 mls/hr DAILY LARISSA Administration Dextrose 1,000 mls @ 40 mls/hr 03/30/17 20:45 03/30/17 22:41 D5w - IV 40 mls/hr ASDIR LARISSA Administration Ipratropium [place] 1 amp 03/30/17 12:00 03/31/17 17:42 Atrovent 0.02% Nebulizer - NEB 1 amp QIDR LARISSA Administration Levothyroxine Sodium 112 mcg 03/30/17 07:00 03/31/17 06:24 Synthroid - PO 112 mcg DAILY@0700 LARISSA Administration Losartan Potassium 25 mg 03/30/17 10:00 03/31/17 09:11 Cozaar - PO 25 mg DAILY LARISSA Administration Pantoprazole Sodium 40 mg 03/30/17 10:00 03/31/17 09:12 Protonix - PO 40 mg DAILY LARISSA Administration Quetiapine Fumarate 12.5 mg 03/30/17 10:00 03/31/17 09:11 Seroquel - PO 12.5 mg BID LARISSA Administration Sodium Chloride 1,000 ml 03/29/17 19:54 03/29/17 20:47 Normal Saline - IV 1,000 ml Q20M PRN Administration MAP<65mm Hg OR SBP <90 Impression 1. hypernatremia 2. a-fib 3. PNA 4. UTI 5. CHF 6. HTN 7. dementia 8. COPD Plan - will increase rate of d5w - repeat labs in am - cont current meds - abx per ID - urine cultures are positive, blood cultures negative - will follow Dr Doss
[2017-03-31] MEDS: DEXTROSE 5%-WATER - 1,000 ML IV SCH (22:10)
[2017-04-01] MEDS: LEVOTHYROXINE NA 112 MCG TABLET (FP) PO SCH (06:34)
[2017-04-01] MEDS: clonazePAM 0.5 MG TABLET PO SCH ×3 (06:34→22:58)
[2017-04-01] MEDS: IPRATROPIUM BR 0.02% 0.5 MG/2.5 ML VIAL.NEB. NEB SCH ×4 (06:45→23:39)
[2017-04-01] MEDS: ALBUTEROL SO4 0.083% IH SOL 2.5 MG/3 ML VIAL.NEB. NEB SCH ×4 (06:45→23:39)
[2017-04-01 07:59] LABS: CALCIUM 8.2 mg/dL (8.5-10.1); COCKROFT - GAULT 86.5555; CREATININE 0.6 mg/dL (0.55-1.02)
[2017-04-01] MEDS: APIXABAN 5 MG TABLET PO SCH ×2 (09:00→22:58)
[2017-04-01] MEDS: QUEtiapine FUMARATE 25 MG TABLET (FP) PO SCH ×2 (09:00→22:58)
[2017-04-01] MEDS: PANTOPRAZOLE 40 MG TABLET (FP) PO SCH (09:01)
[2017-04-01] MEDS: HEPARIN NA (PORCINE) 5,000 UNITS/ML 1ML VIAL SQ SCH ×2 (09:01→22:58)
[2017-04-01] MEDS: CEFTRIAXONE 100 ML IVPB SCH (09:02)
[2017-04-01] MEDS: LOSARTAN POTASSIUM 25 MG TABLET PO SCH (09:03)
--- NOTE | 2017-04-01 09:23 | PN ---
Progress Note, Physician History of Present Illness: Much more awake and alert Not conversant No acute distress Breathing non-labored Tolerating cephalosporin Afebrile WBC improved BC (-) Urine c/s NLF - Current Medication List Current Medications: Active Medications Acetaminophen (Tylenol -) 650 mg PO Q4H PRN PRN Reason: FEVER OR PAIN Albuterol Sulfate (Ventolin 0.083% Nebulizer Soln -) 1 amp NEB Q6HPO [facility] Last Admin: 04/01/17 06:45 Dose: 1 amp Apixaban (Eliquis -) 5 mg PO BID [facility] Last Admin: 04/01/17 09:00 Dose: 5 mg Budesonide (Pulmicort 0.5 Mg Nebulizer -) 1 amp NEB BID [facility] Last Admin: 03/31/17 22:09 Dose: 1 amp Clonazepam (Klonopin -) 0.5 mg PO TID [facility] Last Admin: 04/01/17 06:34 Dose: 0.5 mg Heparin Sodium (Porcine) (Heparin -) 5,000 unit SQ BID [facility] Last Admin: 04/01/17 09:01 Dose: 5,000 unit Ceftriaxone Sodium (Rocephin 2gm Ivpb (Pre-Docked)) 100 mls @ 200 mls/hr IVPB DAILY [facility] Last Admin: 04/01/17 09:02 Dose: 200 mls/hr Dextrose (D5w -) 1,000 mls @ 85 mls/hr IV ASDIR [facility] Last Admin: 03/31/17 22:10 Dose: 85 mls/hr Ipratropium [place] (Atrovent 0.02% Nebulizer -) 1 amp NEB QIDR [facility] Last Admin: 04/01/17 06:45 Dose: 1 amp Levothyroxine Sodium (Synthroid -) 112 mcg PO DAILY@0700 [facility] Last Admin: 04/01/17 06:34 Dose: 112 mcg Losartan Potassium (Cozaar -) 25 mg PO DAILY [facility] Last Admin: 04/01/17 09:03 Dose: 25 mg Pantoprazole Sodium (Protonix -) 40 mg PO DAILY [facility] Last Admin: 04/01/17 09:01 Dose: 40 mg Quetiapine Fumarate (Seroquel -) 12.5 mg PO BID [facility] Last Admin: 04/01/17 09:00 Dose: 12.5 mg Sodium Chloride (Normal Saline -) 1,000 ml IV Q20M PRN PRN Reason: MAP<65mm Hg OR SBP <90 Last Admin: 03/29/17 20:47 Dose: 1,000 ml - Objective Vital Signs: Vital Signs Temperature 98.5 F 03/31/17 22:00 Pulse Rate 65 04/01/17 06:00 Respiratory Rate 20 04/01/17 06:00 Blood Pressure 136/67 04/01/17 06:00 O2 Sat by Pulse Oximetry (%) 94 L 03/31/17 21:00 Constitutional: Yes: No Distress Eyes: Yes: Conjunctiva Clear Cardiovascular: Yes: Regular Rate and Rhythm, S1, S2 Respiratory: Yes: Diminished Gastrointestinal: Yes: Normal Bowel Sounds, Soft, Abdomen, Obese. No: Tenderness Edema: Yes Labs: CBC, BMP 03/31/17 06:00 04/01/17 06:00 INR, PTT INR 2.10 (0.82-1.09) H D 03/29/17 20:00 Assessment/Plan UTI/ Sepsis secondary to UTI - NLF Toxic metabolic encephalopathy- improved Leukocytosis- resolved PCN allergy Continue ceftriaxone Await final urine c/s result
--- NOTE | 2017-04-01 10:28 | PN ---
Progress Note, Physician - Current Medication List Current Medications: Active Medications Acetaminophen (Tylenol -) 650 mg PO Q4H PRN PRN Reason: FEVER OR PAIN Albuterol Sulfate (Ventolin 0.083% Nebulizer Soln -) 1 amp NEB Q6HPO [facility] Last Admin: 04/01/17 06:45 Dose: 1 amp Apixaban (Eliquis -) 5 mg PO BID [facility] Last Admin: 04/01/17 09:00 Dose: 5 mg Budesonide (Pulmicort 0.5 Mg Nebulizer -) 1 amp NEB BID [facility] Last Admin: 03/31/17 22:09 Dose: 1 amp Clonazepam (Klonopin -) 0.5 mg PO TID [facility] Last Admin: 04/01/17 06:34 Dose: 0.5 mg Heparin Sodium (Porcine) (Heparin -) 5,000 unit SQ BID [facility] Last Admin: 04/01/17 09:01 Dose: 5,000 unit Ceftriaxone Sodium (Rocephin 2gm Ivpb (Pre-Docked)) 100 mls @ 200 mls/hr IVPB DAILY [facility] Last Admin: 04/01/17 09:02 Dose: 200 mls/hr Dextrose (D5w -) 1,000 mls @ 85 mls/hr IV ASDIR [facility] Last Admin: 03/31/17 22:10 Dose: 85 mls/hr Ipratropium [place] (Atrovent 0.02% Nebulizer -) 1 amp NEB QIDR [facility] Last Admin: 04/01/17 06:45 Dose: 1 amp Levothyroxine Sodium (Synthroid -) 112 mcg PO DAILY@0700 [facility] Last Admin: 04/01/17 06:34 Dose: 112 mcg Losartan Potassium (Cozaar -) 25 mg PO DAILY [facility] Last Admin: 04/01/17 09:03 Dose: 25 mg Pantoprazole Sodium (Protonix -) 40 mg PO DAILY [facility] Last Admin: 04/01/17 09:01 Dose: 40 mg Quetiapine Fumarate (Seroquel -) 12.5 mg PO BID [facility] Last Admin: 04/01/17 09:00 Dose: 12.5 mg Sodium Chloride (Normal Saline -) 1,000 ml IV Q20M PRN PRN Reason: MAP<65mm Hg OR SBP <90 Last Admin: 03/29/17 20:47 Dose: 1,000 ml - Objective Vital Signs: Vital Signs Temperature 98.5 F 03/31/17 22:00 Pulse Rate 65 04/01/17 06:00 Respiratory Rate 20 04/01/17 06:00 Blood Pressure 136/67 04/01/17 06:00 O2 Sat by Pulse Oximetry (%) 94 L 03/31/17 21:00 Cardiovascular: Yes: S1, S2 Respiratory: Yes: Regular, CTA Bilaterally Gastrointestinal: Yes: Normal Bowel Sounds, Soft Labs: CBC, BMP 03/31/17 06:00 04/01/17 06:00 INR, PTT INR 2.10 (0.82-1.09) H D 03/29/17 20:00 Assessment/Plan - Problems (1) Hypernatremia Assessment/Plan: renal on board on d5w [facility] Laboratory Tests 03/30/17 04/01/17 06:00 06:00 Sodium 153 H 145 Code(s): E87.0 - HYPEROSMOLALITY AND HYPERNATREMIA (2) Pneumonia Assessment/Plan: iv Rocephin duration per id MBS Code(s): J18.9 - PNEUMONIA, UNSPECIFIED ORGANISM Qualifiers: Pneumonia type: due to unspecified organism Laterality: right Lung location: lower lobe of lung Qualified Code(s): J18.1 - Lobar pneumonia, unspecified organism (3) A-fib Assessment/Plan: on eliquis Code(s): I48.91 - UNSPECIFIED ATRIAL FIBRILLATION Qualifiers: Atrial fibrillation type: chronic Qualified Code(s): I48.2 - Chronic atrial fibrillation (4) Dementia Assessment/Plan: psych Code(s): F03.90 - UNSPECIFIED DEMENTIA WITHOUT BEHAVIORAL DISTURBANCE
[2017-04-01] MEDS: BUDESONIDE 0.5 MG/2 ML INH SUSP VIAL NEB SCH ×2 (10:29→21:39)
--- NOTE | 2017-04-01 11:23 | PN ---
Progress Note (short form) - Note Progress Note: RENAL awake and alert answers Last Vital Signs Temp Pulse Resp BP Pulse Ox 97.8 F 65 22 136/48 94 L 04/01/17 10:00 04/01/17 10:29 04/01/17 10:00 04/01/17 10:00 04/01/17 10:29 lungs clear anteriorly cvs s1s2 rr abd soft ext trace edema CBC, BMP 03/31/17 06:00 04/01/17 06:00 Current Medications Generic Name Dose Route Start Last Admin Trade Name Freq PRN Reason Stop Dose Admin Acetaminophen 650 mg 03/29/17 22:09 Tylenol - PO Q4H PRN FEVER OR PAIN Albuterol Sulfate 1 amp 03/30/17 00:00 04/01/17 11:08 Ventolin 0.083% Nebulizer Soln - NEB 1 amp Q6HPO LARISSA Administration Apixaban 5 mg 03/30/17 10:00 04/01/17 09:00 Eliquis - PO 5 mg BID LARISSA Administration Budesonide 1 amp 03/30/17 10:00 04/01/17 10:29 Pulmicort 0.5 Mg Nebulizer - NEB 1 amp BID LARISSA Administration Clonazepam 0.5 mg 03/29/17 22:15 04/01/17 06:34 Klonopin - PO 0.5 mg TID LARISSA Administration Heparin Sodium (Porcine) 5,000 unit 03/30/17 10:00 04/01/17 09:01 Heparin - SQ 5,000 unit BID LARISSA Administration Ceftriaxone Sodium 100 mls @ 200 mls/hr 03/30/17 14:45 04/01/17 09:02 Rocephin 2gm Ivpb (Pre-Docked) IVPB 200 mls/hr DAILY LARISSA Administration Dextrose 1,000 mls @ 85 mls/hr 03/31/17 19:04 03/31/17 22:10 D5w - IV 85 mls/hr ASDIR LARISSA Administration Ipratropium [place] 1 amp 03/30/17 12:00 04/01/17 11:08 Atrovent 0.02% Nebulizer - NEB 1 amp QIDR LARISSA Administration Levothyroxine Sodium 112 mcg 03/30/17 07:00 04/01/17 06:34 Synthroid - PO 112 mcg DAILY@0700 LARISSA Administration Losartan Potassium 25 mg 03/30/17 10:00 04/01/17 09:03 Cozaar - PO 25 mg DAILY LARISSA Administration Pantoprazole Sodium 40 mg 03/30/17 10:00 04/01/17 09:01 Protonix - PO 40 mg DAILY LARISSA Administration Quetiapine Fumarate 12.5 mg 03/30/17 10:00 04/01/17 09:00 Seroquel - PO 12.5 mg BID LARISSA Administration Sodium Chloride 1,000 ml 03/29/17 19:54 03/29/17 20:47 Normal Saline - IV 1,000 ml Q20M PRN Administration MAP<65mm Hg OR SBP <90 Impression 1. hypernatremia improved 2. a-fib 3. PNA 4. UTI 5. CHF 6. HTN 7. dementia 8. COPD Plan - continue fluids - repeat labs in am - cont current meds - abx per ID MV
[2017-04-01] MEDS: DEXTROSE 5%-WATER - 1,000 ML IV SCH ×2 (18:03→23:15)
[2017-04-01] MEDS: ACETAMINOPHEN 325 MG TABLET (FP) PO PRN (18:54)
[2017-04-02] MEDS: LEVOTHYROXINE NA 112 MCG TABLET (FP) PO SCH (06:07)
[2017-04-02] MEDS: clonazePAM 0.5 MG TABLET PO SCH ×3 (06:07→22:40)
[2017-04-02] MEDS: ALBUTEROL SO4 0.083% IH SOL 2.5 MG/3 ML VIAL.NEB. NEB SCH ×4 (06:10→23:20)
[2017-04-02] MEDS: IPRATROPIUM BR 0.02% 0.5 MG/2.5 ML VIAL.NEB. NEB SCH ×4 (06:10→23:20)
[2017-04-02 07:50] LABS: BASOPHIL 0.6 % (0-2.0); EOSINOPHIL 3.4 % (0-4.5); MCHC 32.8 g/dl (32.0-36.0); MEAN CELL VOLUME 94.5 fl (80-96); MEAN PLT VOLUME 9.3 fl (7.5-11.1); NEUTROPHILS 62.5 % (42.8-82.8); PLATELET COUNT 190 K/MM3 (134-434); RDW 14.5 % (11.6-15.6)
[2017-04-02 08:12] LABS: BILIRUBIN,TOTAL 0.3 mg/dL (0.2-1.0)
[2017-04-02 08:13] LABS: ALBUMIN 2.2 g/dl (3.4-5.0); ANION GAP 8 (8-16); CALCIUM 8.2 mg/dL (8.5-10.1); CO2 32 mmol/L (21-32); COCKROFT - GAULT 75.4375; CREATININE 0.7 mg/dL (0.55-1.02); GLUCOSE,RANDOM 98 mg/dL (74-106); SGOT/AST 12 U/L (15-37); SGPT/ALT 14 U/L (12-78); TOT PROT 5.6 g/dl (6.4-8.2)
[2017-04-02 08:14] LABS: ALK PHOS 169 U/L (45-117); FERRITIN 159.389 ng/ml (6.9-282.5)
[2017-04-02] MEDS: BUDESONIDE 0.5 MG/2 ML INH SUSP VIAL NEB SCH ×2 (09:58→22:14)
[2017-04-02] MEDS ORDERED: PT OWN MED DRAWER 7, Y5N ONE ×2 (11:35→21:38)
[2017-04-02] MEDS: HEPARIN NA (PORCINE) 5,000 UNITS/ML 1ML VIAL SQ SCH ×2 (11:39→22:40)
[2017-04-02] MEDS: CEFTRIAXONE 100 ML IVPB SCH (11:39)
[2017-04-02] MEDS: QUEtiapine FUMARATE 25 MG TABLET (FP) PO SCH ×3 (11:40→22:39)
[2017-04-02] MEDS: PANTOPRAZOLE 40 MG TABLET (FP) PO SCH (11:40)
[2017-04-02] MEDS: LOSARTAN POTASSIUM 25 MG TABLET PO SCH (11:41)
[2017-04-02] MEDS: APIXABAN 5 MG TABLET PO SCH ×2 (11:42→22:39)
--- NOTE | 2017-04-02 11:56 | PN ---
Progress Note (short form) - Note Progress Note: RENAL awake and alert incoherent Last Vital Signs Temp Pulse Resp BP Pulse Ox 98.1 F 63 18 131/51 96 04/02/17 09:43 04/02/17 09:57 04/02/17 09:43 04/02/17 09:43 04/02/17 09:57 lungs crackles at both bases cvs s1s2 irr abd soft ext trace edema CBC, BMP 04/02/17 06:00 04/02/17 06:00 Current Medications Generic Name Dose Route Start Last Admin Trade Name Freq PRN Reason Stop Dose Admin Acetaminophen 650 mg 03/29/17 22:09 04/01/17 18:54 Tylenol - PO 650 mg Q4H PRN Administration FEVER OR PAIN Albuterol Sulfate 1 amp 03/30/17 00:00 04/02/17 11:34 Ventolin 0.083% Nebulizer Soln - NEB 1 amp Q6HPO LARISSA Administration Apixaban 5 mg 03/30/17 10:00 04/02/17 11:42 Eliquis - PO 5 mg BID LARISSA Administration Budesonide 1 amp 03/30/17 10:00 04/02/17 09:58 Pulmicort 0.5 Mg Nebulizer - NEB 1 amp BID LARISSA Administration Clonazepam 0.5 mg 03/29/17 22:15 04/02/17 06:07 Klonopin - PO 0.5 mg TID LARISSA Administration Heparin Sodium (Porcine) 5,000 unit 03/30/17 10:00 04/02/17 11:39 Heparin - SQ 5,000 unit BID LARISSA Administration Ceftriaxone Sodium 100 mls @ 200 mls/hr 03/30/17 14:45 04/02/17 11:39 Rocephin 2gm Ivpb (Pre-Docked) IVPB 200 mls/hr DAILY LARISSA Administration Dextrose 1,000 mls @ 85 mls/hr 03/31/17 19:04 04/01/17 23:15 D5w - IV 85 mls/hr ASDIR LARISSA Administration Ipratropium [place] 1 amp 03/30/17 12:00 04/02/17 11:34 Atrovent 0.02% Nebulizer - NEB 1 amp QIDR LARISSA Administration Levothyroxine Sodium 112 mcg 03/30/17 07:00 04/02/17 06:07 Synthroid - PO 112 mcg DAILY@0700 LARISSA Administration Losartan Potassium 25 mg 03/30/17 10:00 04/02/17 11:41 Cozaar - PO 25 mg DAILY LARISSA Administration Pantoprazole Sodium 40 mg 03/30/17 10:00 04/02/17 11:40 Protonix - PO 40 mg DAILY LARISSA Administration Quetiapine Fumarate 12.5 mg 03/30/17 10:00 04/02/17 11:46 Seroquel - PO Not Given BID LARISSA Sodium Chloride 1,000 ml 03/29/17 19:54 03/29/17 20:47 Normal Saline - IV 1,000 ml Q20M PRN Administration MAP<65mm Hg OR SBP <90 Impression 1. hypernatremia improved 2. a-fib 3. PNA 4. UTI 5. CHF 6. HTN 7. dementia 8. COPD Plan - cxr, reduce fluids - repeat labs in am - cont current meds - abx per ID MV
[2017-04-02] MEDS: DEXTROSE 5%-WATER - 1,000 ML IV SCH ×2 (11:58→15:01)
--- NOTE | 2017-04-02 13:55 | PN ---
Progress Note, Physician History of Present Illness: comfortable in bed - Current Medication List Current Medications: Active Medications Acetaminophen (Tylenol -) 650 mg PO Q4H PRN PRN Reason: FEVER OR PAIN Last Admin: 04/01/17 18:54 Dose: 650 mg Albuterol Sulfate (Ventolin 0.083% Nebulizer Soln -) 1 amp NEB Q6HPO [facility] Last Admin: 04/02/17 11:34 Dose: 1 amp Apixaban (Eliquis -) 5 mg PO BID [facility] Last Admin: 04/02/17 11:42 Dose: 5 mg Budesonide (Pulmicort 0.5 Mg Nebulizer -) 1 amp NEB BID [facility] Last Admin: 04/02/17 09:58 Dose: 1 amp Clonazepam (Klonopin -) 0.5 mg PO TID [facility] Last Admin: 04/02/17 06:07 Dose: 0.5 mg Heparin Sodium (Porcine) (Heparin -) 5,000 unit SQ BID [facility] Last Admin: 04/02/17 11:39 Dose: 5,000 unit Ceftriaxone Sodium (Rocephin 2gm Ivpb (Pre-Docked)) 100 mls @ 200 mls/hr IVPB DAILY [facility] Last Admin: 04/02/17 11:39 Dose: 200 mls/hr Dextrose (D5w -) 1,000 mls @ 42 mls/hr IV ASDIR [facility] Ipratropium [place] (Atrovent 0.02% Nebulizer -) 1 amp NEB QIDR [facility] Last Admin: 04/02/17 11:34 Dose: 1 amp Levothyroxine Sodium (Synthroid -) 112 mcg PO DAILY@0700 [facility] Last Admin: 04/02/17 06:07 Dose: 112 mcg Losartan Potassium (Cozaar -) 25 mg PO DAILY [facility] Last Admin: 04/02/17 11:41 Dose: 25 mg Pantoprazole Sodium (Protonix -) 40 mg PO DAILY [facility] Last Admin: 04/02/17 11:40 Dose: 40 mg Quetiapine Fumarate (Seroquel -) 12.5 mg PO BID [facility] Last Admin: 04/02/17 11:46 Dose: Not Given Sodium Chloride (Normal Saline -) 1,000 ml IV Q20M PRN PRN Reason: MAP<65mm Hg OR SBP <90 Last Admin: 03/29/17 20:47 Dose: 1,000 ml - Objective Vital Signs: Vital Signs Temperature 98.1 F 04/02/17 09:43 Pulse Rate 63 04/02/17 09:57 Respiratory Rate 18 04/02/17 09:43 Blood Pressure 131/51 04/02/17 09:43 O2 Sat by Pulse Oximetry (%) 96 04/02/17 09:57 Cardiovascular: Yes: S1, S2 Respiratory: Yes: Regular, CTA Bilaterally Gastrointestinal: Yes: Normal Bowel Sounds, Soft Labs: CBC, BMP 04/02/17 06:00 04/02/17 06:00 INR, PTT INR 2.10 (0.82-1.09) H D 03/29/17 20:00 Assessment/Plan - Problems (1) Hypernatremia Assessment/Plan: renal on board on d5w IMPROVING Laboratory Tests 03/30/17 04/01/17 06:00 06:00 Sodium 153 H 145 Code(s): E87.0 - HYPEROSMOLALITY AND HYPERNATREMIA (2) Pneumonia Assessment/Plan: iv Rocephin duration per id MBS Code(s): J18.9 - PNEUMONIA, UNSPECIFIED ORGANISM Qualifiers: Pneumonia type: due to unspecified organism Laterality: right Lung location: lower lobe of lung Qualified Code(s): J18.1 - Lobar pneumonia, unspecified organism (3) A-fib Assessment/Plan: on eliquis Code(s): I48.91 - UNSPECIFIED ATRIAL FIBRILLATION Qualifiers: Atrial fibrillation type: chronic Qualified Code(s): I48.2 - Chronic atrial fibrillation (4) Dementia Assessment/Plan: psych Code(s): F03.90 - UNSPECIFIED DEMENTIA WITHOUT BEHAVIORAL DISTURBANCE
[2017-04-02] MEDS: ACETAMINOPHEN 325 MG TABLET (FP) PO PRN (22:40)
[2017-04-03] MEDS: clonazePAM 0.5 MG TABLET PO SCH ×3 (05:48→21:59)
[2017-04-03] MEDS: LEVOTHYROXINE NA 112 MCG TABLET (FP) PO SCH (06:05)
[2017-04-03 06:06] LABS: SERUM IRON 49 ug/dL (27-139); TOTAL IRON BINDING CAPACITY 198 ug/dL (250-450); UIBC 149 ug/dL (118-369)
[2017-04-03] MEDS: ALBUTEROL SO4 0.083% IH SOL 2.5 MG/3 ML VIAL.NEB. NEB SCH ×3 (06:16→17:32)
[2017-04-03] MEDS: IPRATROPIUM BR 0.02% 0.5 MG/2.5 ML VIAL.NEB. NEB SCH ×3 (06:16→17:33)
[2017-04-03] MEDS: QUEtiapine FUMARATE 25 MG TABLET (FP) PO SCH (10:04)
[2017-04-03] MEDS: HEPARIN NA (PORCINE) 5,000 UNITS/ML 1ML VIAL SQ SCH (10:04)
[2017-04-03] MEDS: LOSARTAN POTASSIUM 25 MG TABLET PO SCH (10:04)
[2017-04-03] MEDS: CEFTRIAXONE 100 ML IVPB SCH (10:04)
[2017-04-03] MEDS: PANTOPRAZOLE 40 MG TABLET (FP) PO SCH (10:04)
[2017-04-03] MEDS: APIXABAN 5 MG TABLET PO SCH ×2 (10:05→22:01)
[2017-04-03] MEDS: DEXTROSE 5%-WATER - 1,000 ML IV SCH ×2 (10:10→15:58)
[2017-04-03] MEDS: BUDESONIDE 0.5 MG/2 ML INH SUSP VIAL NEB SCH ×2 (10:29→21:45)
--- NOTE | 2017-04-03 11:14 | PN ---
Progress Note, Physician History of Present Illness: Awake, not conversant Breathing non-labored Afebrile WBC WNL Tolerating cephalosporin BC no growth - Current Medication List Current Medications: Active Medications Acetaminophen (Tylenol -) 650 mg PO Q4H PRN PRN Reason: FEVER OR PAIN Last Admin: 04/02/17 22:40 Dose: 650 mg Albuterol Sulfate (Ventolin 0.083% Nebulizer Soln -) 1 amp NEB Q6HPO [facility] Last Admin: 04/03/17 06:16 Dose: 1 amp Apixaban (Eliquis -) 5 mg PO BID [facility] Last Admin: 04/03/17 10:05 Dose: 5 mg Budesonide (Pulmicort 0.5 Mg Nebulizer -) 1 amp NEB BID [facility] Last Admin: 04/03/17 10:29 Dose: 1 amp Clonazepam (Klonopin -) 0.5 mg PO TID [facility] Last Admin: 04/03/17 05:48 Dose: 0.5 mg Heparin Sodium (Porcine) (Heparin -) 5,000 unit SQ BID [facility] Last Admin: 04/03/17 10:04 Dose: 5,000 unit Ceftriaxone Sodium (Rocephin 2gm Ivpb (Pre-Docked)) 100 mls @ 200 mls/hr IVPB DAILY [facility] Last Admin: 04/03/17 10:04 Dose: 200 mls/hr Dextrose (D5w -) 1,000 mls @ 42 mls/hr IV ASDIR [facility] Last Admin: 04/03/17 10:10 Dose: 42 mls/hr Ipratropium [place] (Atrovent 0.02% Nebulizer -) 1 amp NEB QIDR [facility] Last Admin: 04/03/17 06:16 Dose: 1 amp Levothyroxine Sodium (Synthroid -) 112 mcg PO DAILY@0700 [facility] Last Admin: 04/03/17 06:05 Dose: 112 mcg Losartan Potassium (Cozaar -) 25 mg PO DAILY [facility] Last Admin: 04/03/17 10:04 Dose: 25 mg Pantoprazole Sodium (Protonix -) 40 mg PO DAILY [facility] Last Admin: 04/03/17 10:04 Dose: 40 mg Quetiapine Fumarate (Seroquel -) 12.5 mg PO BID [facility] Last Admin: 04/03/17 10:04 Dose: 12.5 mg Sodium Chloride (Normal Saline -) 1,000 ml IV Q20M PRN PRN Reason: MAP<65mm Hg OR SBP <90 Last Admin: 03/29/17 20:47 Dose: 1,000 ml - Objective Vital Signs: Vital Signs Temperature 98 F 04/03/17 06:00 Pulse Rate 60 04/03/17 10:29 Respiratory Rate 20 04/03/17 06:00 Blood Pressure 140/74 04/03/17 06:00 O2 Sat by Pulse Oximetry (%) 95 04/03/17 10:29 Constitutional: Yes: No Distress Eyes: Yes: Conjunctiva Clear Cardiovascular: Yes: Regular Rate and Rhythm, S1, S2 Respiratory: Yes: Rhonchi Gastrointestinal: Yes: Normal Bowel Sounds, Soft. No: Tenderness Labs: CBC, BMP 04/02/17 06:00 04/02/17 06:00 INR, PTT INR 2.10 (0.82-1.09) H D 03/29/17 20:00 Assessment/Plan UTI/ Sepsis secondary to UTI - Proteus sp Toxic metabolic encephalopathy / OBS Leukocytosis- resolved PCN allergy may substitute levaquin 5oomg po daily x 7d
--- NOTE | 2017-04-03 12:01 | PN ---
Progress Note, Physician History of Present Illness: Pt seen and examined at bedside. She is drowsy today. - Current Medication List Current Medications: Active Medications Acetaminophen (Tylenol -) 650 mg PO Q4H PRN PRN Reason: FEVER OR PAIN Last Admin: 04/02/17 22:40 Dose: 650 mg Albuterol Sulfate (Ventolin 0.083% Nebulizer Soln -) 1 amp NEB Q6HPO [facility] Last Admin: 04/03/17 11:40 Dose: 1 amp Apixaban (Eliquis -) 5 mg PO BID [facility] Last Admin: 04/03/17 10:05 Dose: 5 mg Budesonide (Pulmicort 0.5 Mg Nebulizer -) 1 amp NEB BID [facility] Last Admin: 04/03/17 10:29 Dose: 1 amp Clonazepam (Klonopin -) 0.5 mg PO TID [facility] Last Admin: 04/03/17 05:48 Dose: 0.5 mg Heparin Sodium (Porcine) (Heparin -) 5,000 unit SQ BID [facility] Last Admin: 04/03/17 10:04 Dose: 5,000 unit Ceftriaxone Sodium (Rocephin 2gm Ivpb (Pre-Docked)) 100 mls @ 200 mls/hr IVPB DAILY [facility] Last Admin: 04/03/17 10:04 Dose: 200 mls/hr Dextrose (D5w -) 1,000 mls @ 42 mls/hr IV ASDIR [facility] Last Admin: 04/03/17 10:10 Dose: 42 mls/hr Ipratropium [place] (Atrovent 0.02% Nebulizer -) 1 amp NEB QIDR [facility] Last Admin: 04/03/17 11:40 Dose: 1 amp Levothyroxine Sodium (Synthroid -) 112 mcg PO DAILY@0700 [facility] Last Admin: 04/03/17 06:05 Dose: 112 mcg Losartan Potassium (Cozaar -) 25 mg PO DAILY [facility] Last Admin: 04/03/17 10:04 Dose: 25 mg Pantoprazole Sodium (Protonix -) 40 mg PO DAILY [facility] Last Admin: 04/03/17 10:04 Dose: 40 mg Quetiapine Fumarate (Seroquel -) 12.5 mg PO BID [facility] Last Admin: 04/03/17 10:04 Dose: 12.5 mg Sodium Chloride (Normal Saline -) 1,000 ml IV Q20M PRN PRN Reason: MAP<65mm Hg OR SBP <90 Last Admin: 03/29/17 20:47 Dose: 1,000 ml - Objective Vital Signs: Vital Signs Temperature 98 F 04/03/17 06:00 Pulse Rate 60 04/03/17 10:29 Respiratory Rate 20 04/03/17 06:00 Blood Pressure 140/74 04/03/17 06:00 O2 Sat by Pulse Oximetry (%) 95 04/03/17 10:29 Constitutional: Yes: Calm Eyes: Yes: Conjunctiva Clear HENT: Yes: Atraumatic Neck: Yes: Supple Cardiovascular: Yes: S1, S2 Respiratory: Yes: CTA Bilaterally Gastrointestinal: Yes: Soft Genitourinary: Yes: Incontinence Musculoskeletal: Yes: Muscle Weakness Edema: No Neurological: Yes: Confusion Labs: CBC, BMP 04/02/17 06:00 04/02/17 06:00 INR, PTT INR 2.10 (0.82-1.09) H D 03/29/17 20:00 Problem List - Problems (1) Pneumonia Code(s): J18.9 - PNEUMONIA, UNSPECIFIED ORGANISM Qualifiers: Pneumonia type: due to unspecified organism Laterality: right Lung location: lower lobe of lung Qualified Code(s): J18.1 - Lobar pneumonia, unspecified organism (2) A-fib Code(s): I48.91 - UNSPECIFIED ATRIAL FIBRILLATION Qualifiers: Atrial fibrillation type: chronic Qualified Code(s): I48.2 - Chronic atrial fibrillation (3) Dementia Code(s): F03.90 - UNSPECIFIED DEMENTIA WITHOUT BEHAVIORAL DISTURBANCE (4) HTN (hypertension) Code(s): I10 - ESSENTIAL (PRIMARY) HYPERTENSION (5) Hypernatremia Code(s): E87.0 - HYPEROSMOLALITY AND HYPERNATREMIA Assessment/Plan Current Medications Generic Name Dose Route Start Last Admin Trade Name Freq PRN Reason Stop Dose Admin Acetaminophen 650 mg 03/29/17 22:09 04/02/17 22:40 Tylenol - PO 650 mg Q4H PRN Administration FEVER OR PAIN Albuterol Sulfate 1 amp 03/30/17 00:00 04/03/17 11:40 Ventolin 0.083% Nebulizer Soln - NEB 1 amp Q6HPO LARISSA Administration Apixaban 5 mg 03/30/17 10:00 04/03/17 10:05 Eliquis - PO 5 mg BID LARISSA Administration Budesonide 1 amp 03/30/17 10:00 04/03/17 10:29 Pulmicort 0.5 Mg Nebulizer - NEB 1 amp BID LARISSA Administration Clonazepam 0.5 mg 03/29/17 22:15 04/03/17 05:48 Klonopin - PO 0.5 mg TID LARISSA Administration Heparin Sodium (Porcine) 5,000 unit 03/30/17 10:00 04/03/17 10:04 Heparin - SQ 5,000 unit BID LARISSA Administration Ceftriaxone Sodium 100 mls @ 200 mls/hr 03/30/17 14:45 04/03/17 10:04 Rocephin 2gm Ivpb (Pre-Docked) IVPB 200 mls/hr DAILY LARISSA Administration Dextrose 1,000 mls @ 42 mls/hr 04/02/17 11:58 04/03/17 10:10 D5w - IV 42 mls/hr ASDIR LARISSA Administration Ipratropium [place] 1 amp 03/30/17 12:00 04/03/17 11:40 Atrovent 0.02% Nebulizer - NEB 1 amp QIDR LARISSA Administration Levothyroxine Sodium 112 mcg 03/30/17 07:00 04/03/17 06:05 Synthroid - PO 112 mcg DAILY@0700 LARISSA Administration Losartan Potassium 25 mg 03/30/17 10:00 04/03/17 10:04 Cozaar - PO 25 mg DAILY LARISSA Administration Pantoprazole Sodium 40 mg 03/30/17 10:00 04/03/17 10:04 Protonix - PO 40 mg DAILY LARISSA Administration Quetiapine Fumarate 12.5 mg 03/30/17 10:00 04/03/17 10:04 Seroquel - PO 12.5 mg BID LARISSA Administration Sodium Chloride 1,000 ml 03/29/17 19:54 03/29/17 20:47 Normal Saline - IV 1,000 ml Q20M PRN Administration MAP<65mm Hg OR SBP <90 Impression 1. hypernatremia 2. a-fib 3. PNA 4. UTI 5. CHF 6. HTN 7. dementia 8. COPD Plan - sodium is improving - renal function is stabilizing - cont d5w - repeat labs in am - abx per ID - will follow - encourage PO intake - reviewed weekend notes Dr Doss
--- NOTE | 2017-04-03 21:29 | PN ---
Progress Note, Physician Chief Complaint: ASLEEP/AROUSABLE CONFUSED - Current Medication List Current Medications: Active Medications Acetaminophen (Tylenol -) 650 mg PO Q4H PRN PRN Reason: FEVER OR PAIN Last Admin: 04/02/17 22:40 Dose: 650 mg Albuterol Sulfate (Ventolin 0.083% Nebulizer Soln -) 1 amp NEB Q6HPO [facility] Last Admin: 04/03/17 17:32 Dose: 1 amp Apixaban (Eliquis -) 5 mg PO BID [facility] Last Admin: 04/03/17 10:05 Dose: 5 mg Budesonide (Pulmicort 0.5 Mg Nebulizer -) 1 amp NEB BID [facility] Last Admin: 04/03/17 10:29 Dose: 1 amp Clonazepam (Klonopin -) 0.5 mg PO TID [facility] Last Admin: 04/03/17 16:01 Dose: 0.5 mg Ceftriaxone Sodium (Rocephin 2gm Ivpb (Pre-Docked)) 100 mls @ 200 mls/hr IVPB DAILY [facility] Last Admin: 04/03/17 10:04 Dose: 200 mls/hr Dextrose (D5w -) 1,000 mls @ 42 mls/hr IV ASDIR [facility] Last Admin: 04/03/17 15:58 Dose: Not Given Ipratropium [place] (Atrovent 0.02% Nebulizer -) 1 amp NEB QIDR [facility] Last Admin: 04/03/17 17:33 Dose: 1 amp Levothyroxine Sodium (Synthroid -) 112 mcg PO DAILY@0700 [facility] Last Admin: 04/03/17 06:05 Dose: 112 mcg Losartan Potassium (Cozaar -) 25 mg PO DAILY [facility] Last Admin: 04/03/17 10:04 Dose: 25 mg Pantoprazole Sodium (Protonix -) 40 mg PO DAILY [facility] Last Admin: 04/03/17 10:04 Dose: 40 mg Quetiapine Fumarate (Seroquel -) 12.5 mg PO HS [facility] Sodium Chloride (Normal Saline -) 1,000 ml IV Q20M PRN PRN Reason: MAP<65mm Hg OR SBP <90 Last Admin: 03/29/17 20:47 Dose: 1,000 ml - Objective Vital Signs: Vital Signs Temperature 98 F 04/03/17 15:33 Pulse Rate 65 05/08/17 15:33 Respiratory Rate 20 04/03/17 15:33 Blood Pressure 120/57 04/03/17 15:33 O2 Sat by Pulse Oximetry (%) 95 04/03/17 10:29 Constitutional: Yes: No Distress Eyes: Yes: WNL HENT: Yes: WNL Neck: Yes: WNL Cardiovascular: Yes: Pulse Irregular Respiratory: Yes: WNL Gastrointestinal: Yes: WNL Musculoskeletal: Yes: Muscle Weakness Extremities: Yes: Other Edema: No Peripheral Pulses WNL: Yes Integumentary: Yes: WNL Wound/Incision: Yes: Clean/Dry Neurological: Yes: Pre-Existing Deficit, Other ...Motor Strength: LLE, RLE Psychiatric: Yes: Other Labs: CBC, BMP 04/02/17 06:00 04/02/17 06:00 INR, PTT INR 2.10 (0.82-1.09) H D 03/29/17 20:00 Problem List - Problems (1) Hypernatremia Code(s): E87.0 - HYPEROSMOLALITY AND HYPERNATREMIA (2) Pneumonia Code(s): J18.9 - PNEUMONIA, UNSPECIFIED ORGANISM Qualifiers: Pneumonia type: due to unspecified organism Laterality: right Lung location: lower lobe of lung Qualified Code(s): J18.1 - Lobar pneumonia, unspecified organism (3) Sepsis Code(s): A41.9 - SEPSIS, UNSPECIFIED ORGANISM Qualifiers: Sepsis type: sepsis due to unspecified organism Qualified Code(s): A41.9 - Sepsis, unspecified organism (4) A-fib Code(s): I48.91 - UNSPECIFIED ATRIAL FIBRILLATION Qualifiers: Atrial fibrillation type: chronic Qualified Code(s): I48.2 - Chronic atrial fibrillation (5) Altered awareness, transient Code(s): R40.4 - TRANSIENT ALTERATION OF AWARENESS (6) Dementia Code(s): F03.90 - UNSPECIFIED DEMENTIA WITHOUT BEHAVIORAL DISTURBANCE (7) UTI (urinary tract infection) Code(s): N39.0 - URINARY TRACT INFECTION, SITE NOT SPECIFIED Assessment/Plan RESPONDED WELL TO IV ABX AND IVF CHANGING TO PO LEVAQUIN TOMORROW AND DC BACK TO [facility] NA+ LEVELS NORMAL SERAQUEL CHANGED TO QHS ONLY
[2017-04-03] MEDS ORDERED: PT OWN MED DRAWER 7, Y5N ONE (21:40)
[2017-04-03] MEDS ORDERED: QUEtiapine FUMARATE 25 MG TABLET (FP) PO SCH (22:00)
[2017-04-04] MEDS: ALBUTEROL SO4 0.083% IH SOL 2.5 MG/3 ML VIAL.NEB. NEB SCH
[2017-04-04] MEDS: IPRATROPIUM BR 0.02% 0.5 MG/2.5 ML VIAL.NEB. NEB SCH
[2017-04-04] MEDS: LEVOTHYROXINE NA 112 MCG TABLET (FP) PO SCH (06:12)
[2017-04-04] MEDS: clonazePAM 0.5 MG TABLET PO SCH ×2 (06:12→14:07)
--- NOTE | 2017-04-04 06:27 | DS ---
Physical Examination Vital Signs: Vital Signs Temperature 98.2 F 04/03/17 22:00 Pulse Rate 67 04/03/17 22:00 Respiratory Rate 20 04/03/17 22:00 Blood Pressure 142/92 04/03/17 22:00 O2 Sat by Pulse Oximetry (%) 96 04/03/17 21:00 Findings/Remarks: nad/asleep Constitutional: Yes: No Distress Eyes: Yes: WNL HENT: Yes: WNL Neck: Yes: WNL Cardiovascular: Yes: Pulse Irregular Respiratory: Yes: Diminished, On Nasal O2 Gastrointestinal: Yes: WNL Musculoskeletal: Yes: Muscle Weakness Extremities: Yes: Other Edema: Yes Edema: LLE: Trace, RLE: Trace Peripheral Pulses WNL: Yes Integumentary: Yes: WNL Wound/Incision: Yes: Clean/Dry Neurological: Yes: Confusion, Pre-Existing Deficit ...Motor Strength: LLE, RLE Psychiatric: Yes: Other Labs: CBC, BMP 04/02/17 06:00 04/02/17 06:00 Discharge Summary Reason For Visit: SEPSIS Current Active Problems Hypernatremia (Acute) Pneumonia (Acute) Sepsis (Acute) UTI (urinary tract infection) (Acute) Procedures: Principal: chest xrays Other Procedures: labs/swallow evals Hospital Course: pneumonia, cri, rule aspirations, admitted given iv abx, nebs, 02 support and improved. will start levaquin 500mg daily 7 days and discharge to [facility]. Condition: Fair - Instructions Diet, Activity, Other Instructions: dysphagia diet Referrals: Lizandro Cox MD [Primary Care Provider] - Disposition: [facility] - Home Medications Comprehensive Discharge Medication List: Ambulatory Orders Albuterol 0.083% Nebulizer [place] [Ventolin 0.083% Nebulizer Soln -] 1 neb NEB Q4H 02/29/16 Apixaban [Eliquis] 5 mg PO BID 02/29/16 Budesonide [Pulmicort 0.5 mg Nebulizer -] 1 neb NEB BID 02/29/16 Clonazepam 0.5 mg PO Q8H 02/29/16 Furosemide 20 mg PO DAILY 02/29/16 Ipratropium 0.02% Nebulizer [Atrovent 0.02% Nebulizer -] 1 neb NEB ASDIR PRN 03/12 Levothyroxine [Synthroid -] 112 mcg PO DAILY 02/29/16 Losartan Potassium 25 mg PO DAILY 02/29/16 Quetiapine Fumarate [Seroquel -] 12.5 mg PO BID tablet 10/10/16 Acetaminophen [Tylenol -] 650 mg PO BID 03/29/17
[2017-04-04] MEDS ORDERED: PT OWN MED DRAWER 7, Y5N ONE ×2 (06:44→10:04)
[2017-04-04] MEDS ORDERED: LEVOFLOXACIN 500 MG TABLET (FP) PO SCH (06:45)
[2017-04-04 07:16] LABS: MCH 30.9 pg (25.7-33.7); MCHC 32.6 g/dl (32.0-36.0); MEAN PLT VOLUME 9.9 fl (7.5-11.1); PLATELET COUNT 216 K/MM3 (134-434); RDW 14.6 % (11.6-15.6); WHITE BLOOD COUNT 7.4 K/mm3 (4.0-10.0)
[2017-04-04 07:44] LABS: CALCIUM 8.3 mg/dL (8.5-10.1); COCKROFT - GAULT 74.8765; CREATININE 0.7 mg/dL (0.55-1.02)
[2017-04-04] MEDS: BUDESONIDE 0.5 MG/2 ML INH SUSP VIAL NEB SCH (09:10)
[2017-04-04] MEDS: PANTOPRAZOLE 40 MG TABLET (FP) PO SCH (10:06)
[2017-04-04] MEDS: LOSARTAN POTASSIUM 25 MG TABLET PO SCH (10:06)
[2017-04-04] MEDS: APIXABAN 5 MG TABLET PO SCH (10:06)
--- NOTE | 2017-04-04 12:01 | PN ---
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 Continue modified diet at [place]. Pending d/c.
[2017-04-04 15:42] VITALS: BP 123/42; PULSE 68; TEMP 98.8
--- NOTE | 2017-04-04 15:44 | PN ---
Progress Note, Physician History of Present Illness: Pt seen and examined at bedside. No acute events. She remains confused. - Current Medication List Current Medications: Active Medications Acetaminophen (Tylenol -) 650 mg PO Q4H PRN PRN Reason: FEVER OR PAIN Last Admin: 04/02/17 22:40 Dose: 650 mg Apixaban (Eliquis -) 5 mg PO BID [facility] Last Admin: 04/04/17 10:06 Dose: 5 mg Budesonide (Pulmicort 0.5 Mg Nebulizer -) 1 amp NEB BID [facility] Last Admin: 04/04/17 09:10 Dose: 1 amp Clonazepam (Klonopin -) 0.5 mg PO TID [facility] Last Admin: 04/04/17 14:07 Dose: 0.5 mg Levofloxacin (Levaquin -) 500 mg PO DAILY@0600 [facility] Last Admin: 04/04/17 06:47 Dose: 500 mg Levothyroxine Sodium (Synthroid -) 112 mcg PO DAILY@0700 [facility] Last Admin: 04/04/17 06:12 Dose: 112 mcg Losartan Potassium (Cozaar -) 25 mg PO DAILY [facility] Last Admin: 04/04/17 10:06 Dose: 25 mg Pantoprazole Sodium (Protonix -) 40 mg PO DAILY [facility] Last Admin: 04/04/17 10:06 Dose: 40 mg Quetiapine Fumarate (Seroquel -) 12.5 mg PO HS [facility] Last Admin: 04/03/17 21:59 Dose: 12.5 mg - Objective Vital Signs: Vital Signs Temperature 98.8 F 04/04/17 15:38 Pulse Rate 68 04/04/17 15:38 Respiratory Rate 20 04/04/17 15:38 Blood Pressure 123/42 04/04/17 15:38 O2 Sat by Pulse Oximetry (%) 98 04/04/17 09:10 Constitutional: Yes: Calm Eyes: Yes: Conjunctiva Clear Cardiovascular: Yes: S1, S2 Respiratory: Yes: On Nasal O2 Gastrointestinal: Yes: Soft Genitourinary: Yes: Incontinence Musculoskeletal: Yes: Muscle Weakness Edema: No Neurological: Yes: Confusion Labs: CBC, BMP 04/04/17 05:35 04/04/17 05:35 INR, PTT INR 2.10 (0.82-1.09) H D 03/29/17 20:00 Problem List - Problems (1) Pneumonia Code(s): J18.9 - PNEUMONIA, UNSPECIFIED ORGANISM Qualifiers: Pneumonia type: due to unspecified organism Laterality: right Lung location: lower lobe of lung Qualified Code(s): J18.1 - Lobar pneumonia, unspecified organism (2) A-fib Code(s): I48.91 - UNSPECIFIED ATRIAL FIBRILLATION Qualifiers: Atrial fibrillation type: chronic Qualified Code(s): I48.2 - Chronic atrial fibrillation (3) Dementia Code(s): F03.90 - UNSPECIFIED DEMENTIA WITHOUT BEHAVIORAL DISTURBANCE (4) HTN (hypertension) Code(s): I10 - ESSENTIAL (PRIMARY) HYPERTENSION (5) Hypernatremia Code(s): E87.0 - HYPEROSMOLALITY AND HYPERNATREMIA Assessment/Plan Current Medications Generic Name Dose Route Start Last Admin Trade Name Freq PRN Reason Stop Dose Admin Acetaminophen 650 mg 03/29/17 22:09 04/02/17 22:40 Tylenol - PO 650 mg Q4H PRN Administration FEVER OR PAIN Apixaban 5 mg 03/30/17 10:00 04/04/17 10:06 Eliquis - PO 5 mg BID LARISSA Administration Budesonide 1 amp 03/30/17 10:00 04/04/17 09:10 Pulmicort 0.5 Mg Nebulizer - NEB 1 amp BID LARISSA Administration Clonazepam 0.5 mg 03/29/17 22:15 04/04/17 14:07 Klonopin - PO 0.5 mg TID LARISSA Administration Levofloxacin 500 mg 04/04/17 06:45 04/04/17 06:47 Levaquin - PO 500 mg DAILY@0600 L[facility]IS[facility] Administration Levothyroxine Sodium 112 mcg 03/30/17 07:00 04/04/17 06:12 Synthroid - PO 112 mcg DAILY@0700 L[facility]IS[facility] Administration Losartan Potassium 25 mg 03/30/17 10:00 04/04/17 10:06 Cozaar - PO 25 mg DAILY LARISSA Administration Pantoprazole Sodium 40 mg 03/30/17 10:00 04/04/17 10:06 Protonix - PO 40 mg DAILY LARISSA Administration Quetiapine Fumarate 12.5 mg 04/03/17 22:00 04/03/17 21:59 Seroquel - PO 12.5 mg HS LARISSA Administration Impression 1. hypernatremia 2. a-fib 3. PNA 4. UTI 5. CHF 6. HTN 7. dementia 8. COPD Plan - sodium is stable - renal function is stabilizing - abx per ID - will follow PRN - encourage PO intake, will need one to one feeds Dr Doss
== END 2017-04-04 16:20 | DRG 871 ==
LOC: JER 19:33 → JERBED 21:24 → J7W 03-30 00:34
PROVIDERS: ADMIT Family Medicine; ATTEND Family Medicine
DX: A41.9 Sepsis, unspecified organism (principal); J18.9 Pneumonia, unspecified organism; G93.41 Metabolic encephalopathy; N39.0 Urinary tract infection, site not specified; E87.0 Hyperosmolality and hypernatremia; F03.90 Unspecified dementia, unspecified severity, without behavioral disturbance, psychotic disturbance, mood disturbance, and anxiety; I48.2 Chronic atrial fibrillation; Z79.01 Long term (current) use of anticoagulants; E78.5 Hyperlipidemia, unspecified; E03.9 Hypothyroidism, unspecified; J44.9 Chronic obstructive pulmonary disease, unspecified; R13.10 Dysphagia, unspecified; F41.9 Anxiety disorder, unspecified; I25.9 Chronic ischemic heart disease, unspecified; E86.0 Dehydration; B96.4 Proteus (mirabilis) (morganii) as the cause of diseases classified elsewhere
CPT/HCPCS: 36415; 71010-TC; 74230-TC; 80048; 80053; 81003; 81015; 82550; 82607; 82728; 82803; 83540; 83550; 83605; 83735; 83880; 84443; 84484; 85025; 85027; 85610; 85730; 86850; 86900; 86901; 87040; 87086; 87186; 87254; 87804; 92611-GN; 93005; 93010; 94640; 99285-25; J1644

== ENCOUNTER 2017-07-09 00:05 | Emergency (ER) | payer MEDICARE, OTHER ==
[2017-07-09 00:25] VITALS: BP 153/63; PULSE 59; BMI 27.8
--- NOTE | 2017-07-09 00:36 | PDOC ---
History of Present Illness - General History Source: EMS Exam Limitations: Dementia - History of Present Illness Initial Comments: 07/09/17 00:41 The patient is a 82 year old female, with significant past medical history of dementia, a-fib on eliquis, congestive heart failure, hyperlipidemia, COPD/ asthma, and hypothyroidism, who presents today from [facility] with a swollen fourth finger on the left hand. The patient is unable to provide information regarding the swollen finger secondary to dementia. Patient has tenderness on left fourth finger. Patient arrived to the emergency department by EMS. EMS reports the [facility] staff is unsure how the patient sustained the injury. <Yani Bishop - Last Filed: 07/09/17 00:41> <Irena Ambrosio - Last Filed: 07/09/17 01:55> - General Chief Complaint: Edema Stated Complaint: SWOLLEN FINGER Time Seen by Provider: 07/09/17 00:11 Past History <Yani Bishop - Last Filed: 07/09/17 00:41> - Past Medical History Asthma: Yes Cardiac Disorders: Yes (chronic ischemic heart disease, a-fib) COPD: Yes CHF: Yes Dementia: Yes GI Disorders: Yes (dysphagia) HTN: Yes Hypercholesterolemia: Yes Psychiatric Problems: Yes (anxiety) Thyroid Disease: Yes (hypothyroidism,) - Immunization History Immunization Up to Date: Yes - Psycho/Social/Smoking Cessation Hx Anxiety: No Suicidal Ideation: No Smoking History: Unknown if ever smoked Have you smoked in the past 12 months: No Number of Cigarettes Smoked Daily: 0 Cigars Per Day: 0 Hx Alcohol Use: No Drug/Substance Use Hx: No Substance Use Type: None Hx Substance Use Treatment: No <Irena Ambrosio - Last Filed: 07/09/17 01:55> - Past Medical History Allergies/Adverse Reactions: Allergies Allergy/AdvReac Type Severity Reaction Status Date / Time Penicillins Allergy Verified 07/09/17 00:22 Home Medications: Ambulatory Orders Albuterol 0.083% Nebulizer Corinne [Ventolin 0.083% Nebulizer Soln -] 1 neb NEB Q4H 02/29/16 Apixaban [Eliquis] 5 mg PO BID 02/29/16 Budesonide [Pulmicort 0.5 mg Nebulizer -] 1 neb NEB BID 02/29/16 Clonazepam 0.5 mg PO Q8H 02/29/16 Ipratropium 0.02% Nebulizer [Atrovent 0.02% Nebulizer -] 1 neb NEB ASDIR PRN 03/12 Levothyroxine [Synthroid -] 112 mcg PO DAILY 02/29/16 Losartan Potassium 25 mg PO DAILY 02/29/16 Acetaminophen [Tylenol .Regular Strength -] 650 mg PO BID 03/29/17 Acetaminophen [Tylenol .Regular Strength -] 650 mg PO Q4H PRN #0 tablet Albuterol 0.083% Nebulizer Corinne [Ventolin 0.083% Nebulizer Soln -] 1 amp NEB Q6HPO amp 04/04/17 Budesonide [Pulmicort 0.5 mg Nebulizer -] 1 amp NEB BID amp 04/04/17 Levofloxacin [Levaquin -] 500 mg PO DAILY@0600 #7 tablet 04/04/17 Quetiapine Fumarate [Seroquel -] 12.5 mg PO HS tablet 04/04/17 Review of Systems - Review of Systems Able to Perform ROS?: No (Dementia) <Yani Bishop - Last Filed: 07/09/17 00:41> *Physical Exam - Vital Signs Last Vital Signs Temp Pulse Resp BP Pulse Ox 59 L 14 153/63 93 L 07/09/17 00:23 07/09/17 00:23 07/09/17 00:23 07/09/17 00:23 <Yani Bishop - Last Filed: 07/09/17 00:41> - Vital Signs Last Vital Signs Temp Pulse Resp BP Pulse Ox 59 L 14 153/63 93 L 07/09/17 00:23 07/09/17 00:23 07/09/17 00:23 07/09/17 00:23 - Physical Exam Comments: GENERAL: Awake, alert, in no acute distress HEAD: No signs of trauma EYES: PERRLA, EOMI, sclera anicteric, conjunctiva clear ENT: Auricles normal inspection, hearing grossly normal, nares patent, oropharynx clear without exudates. Moist mucosa NECK: Normal ROM, supple, no lymphadenopathy, JVD, or masses EXTREMITIES: L 4th finger with hematoma to the area of the distal phalanx. No induration, no erythema, no fluctuance. +Small puncture wound to the palmar surface at the base of the distal phalanx. Remainder of extremities with normal range of motion, no edema. No clubbing or cyanosis. No cords, erythema. NEUROLOGICAL: Moving all extremities. SKIN: Warm, Dry, normal turgor, no rashes or lesions noted. <Irena Ambrosio - Last Filed: 07/09/17 01:55> Medical Decision Making - Medical Decision Making Area of the hematoma is well-demarcated. XR obtained to r/o FB, fx. No obvious findings on XR. No signs of cellulitis on exam. Either there was a small puncture that caused bleeding under the skin, or the patient hit her finger and was not able to communicate it to the [place] staff. <Irena Ambrosio - Last Filed: 07/09/17 01:55> *DC/Admit/Observation/Transfer - Attestations Scribe Attestion: 07/09/17 00:44 Documentation prepared by KIM Lord, acting as medical reviewer for Irena Ambrosio MD. <Yani Bishop - Last Filed: 07/09/17 00:41> - Discharge Dispostion Admit: No <Irena Ambrosio - Last Filed: 07/09/17 01:55> Diagnosis at time of Disposition: Finger pain, left - Discharge Dispostion Disposition: HOME Condition at time of disposition: Stable - Patient Instructions Printed Discharge Instructions: DI for Contusion
== END 2017-07-09 04:15 | disposition home or self-care (01) ==
LOC: JER 00:05
DX: M79.645 Pain in left finger(s) (principal); F03.90 Unspecified dementia, unspecified severity, without behavioral disturbance, psychotic disturbance, mood disturbance, and anxiety; J45.909 Unspecified asthma, uncomplicated; J44.9 Chronic obstructive pulmonary disease, unspecified; R13.10 Dysphagia, unspecified; F41.9 Anxiety disorder, unspecified; E78.00 Pure hypercholesterolemia, unspecified; E03.9 Hypothyroidism, unspecified; I50.9 Heart failure, unspecified
CPT/HCPCS: 73140-TC-LT; 99282-25